=== PATIENT | female | born 1960 | race Caucasian/White ===

== ENCOUNTER → 2016-08-04 | Outpatient (REF) | payer BC ==
[~2016-08-04] MED LIST: ASTELIN; FLON1SPR
== END ==
LOC: M SFHCWAGY 08:43
PROVIDERS: ATTEND Nurse Practitioner Family
DX: Z12.4 Encounter for screening for malignant neoplasm of cervix (principal); N95.2 Postmenopausal atrophic vaginitis

== ENCOUNTER → 2016-10-13 | Outpatient (CLI) | payer BC ==
[2016-10-13 13:43] LABS: BASO % 0.5 % (0.0-1.0); EOS # 0.1 K/mm3 (0.0-0.50); EOS % 1.7 % (0.0-3.0); LARGE UNSTAINED CELL # 0.1 K/mm3 (0.0-0.4); LARGE UNSTAINED CELL % 1.7 % (0.0-4.0); LYMPH # 1.8 K/mm3 (1.5-4.5); LYMPH % 25.4 % (24.0-44.0); MEAN CORPUSCULAR HEMOGLOBIN 32.3 pg (27.0-33.0); MEAN CORPUSCULAR HGB CONC 33.2 g/dl (32.0-36.5); MEAN CORPUSCULAR VOLUME 97.1 fl (80.0-96.0); MONO # 0.3 K/mm3 (0.0-0.8); MONO % 4.7 % (0.0-5.0); NEUTROPHILS # 4.4 K/mm3 (1.8-7.7); PLATELET COUNT, AUTOMATED 221 k/mm3 (150-450); RED CELL DISTRIBUTION WIDTH 12.8 % (11.5-14.5); WHITE BLOOD COUNT 6.7 K/mm3 (4.0-10.0)
[2016-10-13 14:27] LABS: IMMUNOGLOBULIN G 549 MG/DL (681-1648); IMMUNOGLOBULIN M 39.2 MG/DL (40-230)
[2016-10-13 14:49] LABS: IMMUNOGLOBULIN E 19.6 IU/ML (<100)
== END ==
LOC: M SMT 11:48
PROVIDERS: ATTEND Allergy & Immunology Allergy
DX: J30.9 Allergic rhinitis, unspecified (principal)

== ENCOUNTER → 2016-11-26 | Outpatient (REF) | payer BC ==
[~2016-11-26] MED LIST changes: +AMLO5TAB2 PO; +ESTR62CR PV; +NYST50SS SS; +RANI150T PO
[2016-11-26 12:33] LABS: BLOOD UREA NITROGEN 16 MG/DL (7-18); CREATININE FOR GFR 0.71 MG/DL (0.55-1.02); GLOMERULAR FILTRATION RATE > 60.0 (>51)
== END ==
LOC: M LABDRAW1 09:23
PROVIDERS: ATTEND Psychiatry & Neurology Neurology
DX: I10 Essential (primary) hypertension (principal)

== ENCOUNTER → 2016-12-01 | Outpatient (REF) | payer BC ==
[2016-12-01 19:08] LABS: FREE T4 1.21 NG/DL (0.76-1.46)
== END ==
LOC: M LABDRAW1 15:05
PROVIDERS: ATTEND Emergency Medicine
DX: L65.9 Nonscarring hair loss, unspecified (principal)

== ENCOUNTER → 2016-12-01 | Outpatient (REF) | payer BC ==
[2016-12-08 00:11] LABS: STREP PNEUMO TYPE 12F 0.7 ug/mL (>1.3); STREP PNEUMO TYPE 18C 4.7 ug/mL (>1.3); STREP PNEUMO TYPE 19A >23.2 ug/mL (>1.3); STREP PNEUMO TYPE 19F 15.5 ug/mL (>1.3); STREP PNEUMO TYPE 23F >36.0 ug/mL (>1.3); STREP PNEUMO TYPE 6B 3.2 ug/mL (>1.3); STREP PNEUMO TYPE 7F 0.7 ug/mL (>1.3); STREP PNEUMO TYPE 9N 1.9 ug/mL (>1.3); STREP PNEUMO TYPE 9V 1.2 ug/mL (>1.3)
== END ==
LOC: M LABDRAW1 15:07
PROVIDERS: ATTEND Allergy & Immunology Allergy
DX: J32.9 Chronic sinusitis, unspecified (principal)

== ENCOUNTER → 2016-12-15 | Outpatient (REF) | payer BC | LOC: M LAB REF 12:55 | PROVIDERS: ATTEND Physician Assistant | DX: R35.0 Frequency of micturition (principal) ==

== ENCOUNTER → 2016-12-18 | Outpatient (CLI) | payer BC ==
[~2016-12-18] MED LIST changes: +E-Z-GAS II EFFERVESCENT PACKET (SODIUM BICARB./CITRIC ACID/SIMETHICONE) As Ordered ONE; +E-Z-HD 98% w/w 340GM SUSP BTL As Ordered ONE; +E-Z-PAQUE 96% w/w SUSP 176GM BTL As Ordered ONE
--- NOTE | 2016-12-18 15:41 | REP ---
Esophagram The procedure was performed under the direct supervision of Dr. Robles. The images were reviewed with Dr. Robles. A single view PA chest x-ray is submitted as a channeler film. The superior mediastinal structures are midline. The heart size is within normal limits. The lungs are clear. There is no change compared to a previous chest x-ray performed on 09/09/2016. Liquid barium and gas producing granules were given in the erect position as well as liquid barium in the prone oblique positions in order to perform a double contrast esophagram examination. The oral and pharyngeal stages of deglutition are unremarkable. Esophageal transport is prompt and efficient and there is no esophagitis, stricture, mucosal ring or hiatal hernia. The GE junction is patulous. Gastroesophageal reflux is not demonstrated on this examination. Impression: The GE junction is patulous otherwise unremarkable double contrast esophagram examination. 45 seconds of fluoro time was utilized for this procedure. Reviewed by DAVID Wilburn 12/18/2016 02:02 PSigned by Chago Robles MD 12/18/2016 03:32 P
== END ==
LOC: M RAD 08:56
PROVIDERS: ATTEND Physician Assistant Medical
DX: R13.10 Dysphagia, unspecified (principal); K21.9 Gastro-esophageal reflux disease without esophagitis; R10.13 Epigastric pain

== ENCOUNTER → 2016-12-23 | Outpatient (REF) | payer BC ==
[~2016-12-23] MED LIST changes: -E-Z-GAS II EFFERVESCENT PACKET (SODIUM BICARB./CITRIC ACID/SIMETHICONE) As Ordered ONE; -E-Z-HD 98% w/w 340GM SUSP BTL As Ordered ONE; -E-Z-PAQUE 96% w/w SUSP 176GM BTL As Ordered ONE
== END ==
LOC: M LAB REF 13:00
PROVIDERS: ATTEND Physician Assistant
DX: R30.0 Dysuria (principal)

== ENCOUNTER 2016-12-30 02:50 | Emergency (ER) | payer BC ==
[~2016-12-30] VITALS: Ht 170.2 cm; Wt 56.4 kg
[~2016-12-30 02:50] MED LIST changes: -ESTR62CR PV; -NYST50SS SS
[2016-12-30 02:55] VITALS: BP 145/82
[2016-12-30] MEDS ORDERED: NYST50SS SS (03:09)
[2016-12-30] MEDS ORDERED: ESTR62CR PV (05:25)
[2016-12-30] MEDS ORDERED: FLUCONAZOLE 50MG TABLET PO ONE (05:30)
[2016-12-30] MEDS ORDERED: FLUCONAZOLE 100 MG TAB PO ONE (05:30)
== END 2016-12-30 05:36 | disposition home or self-care (01) ==
LOC: M ED 02:50
DX: B37.3 Candidiasis of vulva and vagina (principal); N95.2 Postmenopausal atrophic vaginitis; R51 Headache; G89.29 Other chronic pain

== ENCOUNTER 2016-12-31 13:02 | Outpatient (CLI) | payer BC ==
[~2016-12-31] VITALS: Ht 170.2 cm; Wt 57.6 kg
[~2016-12-31 13:02] MED LIST changes: +ESTR62CR PV; +NYST50SS SS
[2016-12-31] MEDS ORDERED: NS 1,000 ML IV ONE (13:30)
[2016-12-31] MEDS ORDERED: PROPOFOL 200 MG/20 ML VIAL As Ordered ONE ×2 (16:03→16:30)
[2016-12-31] MEDS ORDERED: LIDOCAINE 2% INJ 100 MG/5 ML SDV (FOR ANES.) As Ordered ONE ×2 (16:03→16:30)
[2016-12-31] MEDS ORDERED: fentaNYL 100 MCG/2 ML INJECTION (J3010) As Ordered ONE (16:18)
--- NOTE | 2016-12-31 16:47 | ROOR ---
Patient Name: Zari Han Procedure Date: 12/31/2016 4:25 PM Date of : 1960 Age: 56 Room: [facility] Gender: Female Note Status: Finalized Procedure: Upper GI endoscopy Indications: Oropharyngeal phase dysphagia, Heartburn, Unexplained chest pain Providers: Maxwell SALAS MD Referring MD: PHILIP WAITE MD Requesting Provider: Medicines: Monitored Anesthesia Care Complications: No immediate complications. Procedure: Pre-Anesthesia Assessment: - The heart rate, respiratory rate, oxygen saturations, blood pressure, adequacy of pulmonary ventilation, and response to care were monitored throughout the procedure. The Endoscope was introduced through the mouth, and advanced to the second part of duodenum. The upper GI endoscopy was accomplished without difficulty. The patient tolerated the procedure well. Findings: Minimal inflammation characterized by erythema was found in the gastric antrum. Biopsies were taken with a cold forceps for Helicobacter pylori testing. The examined esophagus was normal. This was biopsied with a cold forceps for histology. The examined duodenum was normal. Impression: - Minimal gastritis. Biopsied. - Normal esophagus. Biopsied at EG junction and mid esophagus. - Normal examined duodenum. Recommendation: - Use Nexium (esomeprazole) 40 mg PO daily. - Telephone endoscopist for pathology results in 2 weeks. Maxwell Salas MD Maxwell SALAS MD 12/31/2016 4:46:44 PM This report has been signed electronically. Number of Addenda: 0 Note Initiated On: 12/31/2016 4:25 PM Estimated Blood Loss: Estimated blood loss: none.
[2016-12-31 17:05] VITALS: BP 172/88
== END 2016-12-31 17:18 | disposition home or self-care (01) ==
LOC: M OPP 13:02
PROVIDERS: ATTEND Internal Medicine Gastroenterology
DX: K29.70 Gastritis, unspecified, without bleeding (principal); K20.9 Esophagitis, unspecified; I10 Essential (primary) hypertension; J30.2 Other seasonal allergic rhinitis; Z79.899 Other long term (current) drug therapy; Z88.0 Allergy status to penicillin; Z91.030 Bee allergy status; Z88.1 Allergy status to other antibiotic agents; Z88.2 Allergy status to sulfonamides
CPT/HCPCS: 43239; 88305; J3010

== ENCOUNTER → 2017-04-27 | Outpatient (CLI) | payer BC | LOC: M LRY 08:07 | PROVIDERS: ATTEND Physician Assistant Medical | DX: K21.9 Gastro-esophageal reflux disease without esophagitis (principal) ==

== ENCOUNTER → 2017-06-18 | Outpatient (CLI) | payer BC ==
[2017-06-18 08:43] LABS: BASO % 0.9 % (0.0-1.0); EOS # 0.1 10^3/uL (0.0-0.50); EOS % 2.2 % (0.0-3.0); HEMATOCRIT 43.7 % (36.0-47.0); HEMOGLOBIN 14.3 g/dl (12.0-16.0); IMMATURE GRANULOCYTE % 0.4 % (0-0); LYMPH # 1.5 10^3/uL (1.5-4.5); MEAN CORPUSCULAR HEMOGLOBIN 31.1 pg (27.0-33.0); MEAN CORPUSCULAR HGB CONC 32.7 g/dl (32.0-36.5); MONO # 0.3 10^3/uL (0.0-0.8); MONO % 6.8 % (0.0-5.0); NEUTROPHILS # 2.5 10^3/uL (1.8-7.7); NEUTROPHILS % 55.7 % (36.0-66.0); PLATELET COUNT, AUTOMATED 160 10^3/uL (150-450); RED CELL DISTRIBUTION WIDTH 12.4 % (11.5-14.5); WHITE BLOOD COUNT 4.5 10^3/uL (4.0-10.0)
[2017-06-18 08:58] LABS: ANION GAP 2 MEQ/L (8-16); BLOOD UREA NITROGEN 17 MG/DL (7-18); CARBON DIOXIDE LEVEL 32 MEQ/L (21-32); CHLORIDE LEVEL 109 MEQ/L (98-107); CHOLESTEROL LEVEL 180 MG/DL (<200); CHOLESTEROL RISK RATIO 3.333 (<5); CREATININE FOR GFR 0.72 MG/DL (0.55-1.02); GLOMERULAR FILTRATION RATE > 60.0 (>51); GLUCOSE, FASTING 87 MG/DL (70-100); HDL CHOLESTEROL 54 MG/DL (>40); LDL CHOLESTEROL 115.2 MG/DL (<100); NON-HDL-C 126 MG/DL; POTASSIUM SERUM 4.8 MEQ/L (3.5-5.1); SODIUM LEVEL 143 MEQ/L (136-145); TRIGLYCERIDES LEVEL 54 MG/DL (<150)
== END ==
LOC: M LAB 07:55
DX: I10 Essential (primary) hypertension (principal)
CPT/HCPCS: 80061

== ENCOUNTER 2017-08-26 11:41 | Day surgery (SDC) | payer BC ==
[2017-08-26] MEDS ORDERED: fentaNYL 100 MCG/2 ML INJECTION (J3010) As Ordered (12:27)
[2017-08-26] MEDS ORDERED: PROPOFOL 200 MG/20 ML VIAL As Ordered ×2 (12:29→12:31)
[2017-08-26] MEDS ORDERED: LIDOCAINE 2% INJ 100 MG/5 ML SDV (FOR ANES.) As Ordered (12:29)
[2017-08-26] MEDS ORDERED: NS 1,000 ML IV (12:30)
== END 2017-08-26 14:00 | disposition home or self-care (01) ==
LOC: M OPP 11:41
DX: R10.13 Epigastric pain (principal); K21.9 Gastro-esophageal reflux disease without esophagitis; I10 Essential (primary) hypertension; F41.9 Anxiety disorder, unspecified; F32.9 Major depressive disorder, single episode, unspecified; Z78.0 Asymptomatic menopausal state; Q07.9 Congenital malformation of nervous system, unspecified; Z91.030 Bee allergy status; Z88.0 Allergy status to penicillin; Z88.1 Allergy status to other antibiotic agents; Z91.040 Latex allergy status; Z88.2 Allergy status to sulfonamides; Z88.8 Allergy status to other drugs, medicaments and biological substances; Z79.899 Other long term (current) drug therapy; Z80.3 Family history of malignant neoplasm of breast; Z80.42 Family history of malignant neoplasm of prostate; Z80.0 Family history of malignant neoplasm of digestive organs
CPT/HCPCS: 91035

== ENCOUNTER → 2017-09-02 | Outpatient (CLI) | payer BC ==
[2017-09-02 17:55] LABS: BASO % 0.5 % (0.0-1.0); EOS # 0.1 10^3/uL (0.0-0.50); EOS % 0.8 % (0.0-3.0); HEMATOCRIT 46.3 % (36.0-47.0); HEMOGLOBIN 15.1 g/dl (12.0-15.5); IMMATURE GRANULOCYTE % 0.4 % (0-3.0); LYMPH # 1.4 10^3/uL (1.5-4.5); LYMPH % 19.6 % (24.0-44.0); MEAN CORPUSCULAR HEMOGLOBIN 31.3 pg (27.0-33.0); MEAN CORPUSCULAR HGB CONC 32.6 g/dl (32.0-36.5); MEAN CORPUSCULAR VOLUME 95.9 fl (80.0-96.0); MONO # 0.5 10^3/uL (0.0-0.8); MONO % 6.2 % (0.0-5.0); NEUTROPHILS # 5.3 10^3/uL (1.8-7.7); NEUTROPHILS % 72.5 % (36.0-66.0); PLATELET COUNT, AUTOMATED 189 10^3/uL (150-450); RED BLOOD COUNT 4.83 10^6/uL (4.00-5.40); RED CELL DISTRIBUTION WIDTH 12.8 % (11.5-14.5); WHITE BLOOD COUNT 7.3 10^3/uL (4.0-10.0)
[2017-09-02 18:11] LABS: ALBUMIN 4.1 GM/DL (3.2-5.2); ALBUMIN/GLOBULIN RATIO 1.46 (1.00-1.93); ALKALINE PHOSPHATASE 84 U/L (45-117); ALT/SGPT 31 U/L (12-78); ANION GAP 6 MEQ/L (8-16); AST/SGOT 14 U/L (7-37); BILIRUBIN,TOTAL 0.4 MG/DL (0.2-1.0); BLOOD UREA NITROGEN 22 MG/DL (7-18); CARBON DIOXIDE LEVEL 30 MEQ/L (21-32); CHLORIDE LEVEL 109 MEQ/L (98-107); CREATININE FOR GFR 0.72 MG/DL (0.55-1.30); FREE T4 1.07 NG/DL (0.76-1.46); GLOMERULAR FILTRATION RATE > 60.0 (>51); GLUCOSE, FASTING 82 MG/DL (70-100); POTASSIUM SERUM 4.1 MEQ/L (3.5-5.1); SODIUM LEVEL 145 MEQ/L (136-145); THYROID STIMULATING HORMONE 0.983 uIU/ML (0.358-3.740); TOTAL PROTEIN 6.9 GM/DL (6.4-8.2)
== END ==
LOC: M LRY 10:15
DX: R63.4 Abnormal weight loss (principal)
CPT/HCPCS: 84443

== ENCOUNTER → 2017-11-16 | Outpatient (CLI) | payer BC ==
[2017-11-16 07:52] LABS: BASO % 0.5 % (0.0-1.0); EOS # 0.1 10^3/uL (0.0-0.50); EOS % 1.6 % (0.0-3.0); HEMATOCRIT 43.7 % (36.0-47.0); HEMOGLOBIN 15.2 g/dl (12.0-15.5); IMMATURE GRANULOCYTE % 0.2 % (0-3.0); LYMPH # 1.7 10^3/uL (1.5-4.5); LYMPH % 30.2 % (24.0-44.0); MEAN CORPUSCULAR HEMOGLOBIN 32.1 pg (27.0-33.0); MEAN CORPUSCULAR HGB CONC 34.8 g/dl (32.0-36.5); MEAN CORPUSCULAR VOLUME 92.4 fl (80.0-96.0); MONO # 0.4 10^3/uL (0.0-0.8); NEUTROPHILS # 3.3 10^3/uL (1.8-7.7); NEUTROPHILS % 59.5 % (36.0-66.0); PLATELET COUNT, AUTOMATED 201 10^3/uL (150-450); RED BLOOD COUNT 4.73 10^6/uL (4.00-5.40); RED CELL DISTRIBUTION WIDTH 12.1 % (11.5-14.5); WHITE BLOOD COUNT 5.5 10^3/uL (4.0-10.0)
[2017-11-16 07:54] LABS: APPEARANCE, URINE CLEAR (CLEAR); BACTERIA, URINE AUTO NEGATIVE (NEGATIVE); BILIRUBIN, URINE AUTO NEGATIVE (NEGATIVE); BLOOD, URINE BLOOD NEGATIVE (NEGATIVE); COLOR, URINE STRAW (YELLOW); GLUCOSE, URINE (UA) AUTO NEGATIVE (NEGATIVE); KETONE, URINE AUTO NEGATIVE (NEGATIVE); LEUKOCYTE ESTERASE, URINE AUTO TRACE (NEGATIVE); NITRITE, URINE AUTO NEGATIVE (NEGATIVE); PROTEIN, URINE AUTO NEGATIVE (NEGATIVE); RBC, URINE AUTO 0 /HPF (0-3); SPECIFIC GRAVITY URINE AUTO 1.006 (1.002-1.035); SQUAMOUS EPITHELIAL CELL UR AU 0 /HPF (0-6); UROBILINOGEN, URINE AUTO 0.2 mg/dL (0.0-2.0); WBC, URINE AUTO 1 /HPF (0-3)
[2017-11-16 08:03] LABS: INR 1.03; PROTHROMBIN TIME 13.6 SECONDS (12.4-14.5)
[2017-11-16 08:04] LABS: PARTIAL THROMBOPLASTIN TIME 27.2 SECONDS (26.8-37.9)
[2017-11-16 08:40] LABS: ALBUMIN 4.3 GM/DL (3.2-5.2); ALBUMIN/GLOBULIN RATIO 1.48 (1.00-1.93); ALKALINE PHOSPHATASE 97 U/L (45-117); ALT/SGPT 32 U/L (12-78); ANION GAP 9 MEQ/L (8-16); AST/SGOT 17 U/L (7-37); BILIRUBIN,TOTAL 0.4 MG/DL (0.2-1.0); BLOOD UREA NITROGEN 13 MG/DL (7-18); CALCIUM LEVEL 9.1 MG/DL (8.5-10.1); CARBON DIOXIDE LEVEL 30 MEQ/L (21-32); CHLORIDE LEVEL 99 MEQ/L (98-107); CREATININE FOR GFR 0.65 MG/DL (0.55-1.30); GLOMERULAR FILTRATION RATE > 60.0 (>51); GLUCOSE, FASTING 64 MG/DL (70-100); HCG, SERUM QUANTITATIVE 2 MIU/ML; LDH LACTATE DEHYDROGENASE 213 U/L (84-246); POTASSIUM SERUM 4.3 MEQ/L (3.5-5.1); SODIUM LEVEL 138 MEQ/L (136-145); TOTAL PROTEIN 7.2 GM/DL (6.4-8.2)
== END ==
LOC: M LAB 06:47
DX: G50.0 Trigeminal neuralgia (principal); R94.31 Abnormal electrocardiogram [ECG] [EKG]
CPT/HCPCS: 71046

== ENCOUNTER → 2018-03-08 | Outpatient (CLI) | payer BC | LOC: M WHC 14:03 | DX: N95.0 Postmenopausal bleeding (principal) | CPT/HCPCS: 76830 ==

== ENCOUNTER → 2018-05-14 | Outpatient (CLI) | payer BC ==
[~2018-05-14] MED LIST changes: -AMLO5TAB2 PO; +AMLO5TAB6 PO; +CLAR10CA3 PO; +DIGECAP7 PO; +FISH1CAP PO; +PROBCAP4 PO; +RANI1TAB6 PO
[2018-05-14 12:12] LABS: BASO % 0.7 % (0.0-1.0); EOS # 0.2 10^3/uL (0.0-0.50); EOS % 3.5 % (0.0-3.0); HEMATOCRIT 44.9 % (36.0-47.0); HEMOGLOBIN 15.3 g/dl (12.0-15.5); LYMPH # 1.3 10^3/uL (1.5-4.5); LYMPH % 30.8 % (24.0-44.0); MEAN CORPUSCULAR HEMOGLOBIN 32.6 pg (27.0-33.0); MEAN CORPUSCULAR HGB CONC 34.1 g/dl (32.0-36.5); MEAN CORPUSCULAR VOLUME 95.7 fl (80.0-96.0); MONO # 0.3 10^3/uL (0.0-0.8); MONO % 7.4 % (0.0-5.0); NEUTROPHILS # 2.5 10^3/uL (1.8-7.7); NEUTROPHILS % 57.4 % (36.0-66.0); PLATELET COUNT, AUTOMATED 190 10^3/uL (150-450); RED BLOOD COUNT 4.69 10^6/uL (4.00-5.40); WHITE BLOOD COUNT 4.3 10^3/uL (4.0-10.0)
[2018-05-14 12:18] LABS: ALBUMIN 3.9 GM/DL (3.2-5.2); ALT/SGPT 24 U/L (12-78); BILIRUBIN,TOTAL 0.3 MG/DL (0.2-1.0); BLOOD UREA NITROGEN 11 MG/DL (7-18); CALCIUM LEVEL 8.8 MG/DL (8.5-10.1); CARBON DIOXIDE LEVEL 30 MEQ/L (21-32); CHLORIDE LEVEL 99 MEQ/L (98-107); CREATININE FOR GFR 0.63 MG/DL (0.55-1.30); GLOMERULAR FILTRATION RATE > 60.0 (>51); GLUCOSE, FASTING 86 MG/DL (70-100); POTASSIUM SERUM 4.7 MEQ/L (3.5-5.1); SODIUM LEVEL 136 MEQ/L (136-145); TOTAL PROTEIN 6.4 GM/DL (6.4-8.2)
[2018-05-14 12:37] LABS: CARBAMAZEPINE (TEGRETOL) LEVEL 6.4 UG/ML (4.0-10.0)
== END ==
LOC: M LRY 09:24
DX: G50.0 Trigeminal neuralgia (principal)

== ENCOUNTER → 2018-07-21 | Outpatient (CLI) | payer BC ==
[2018-07-21 07:10] LABS: CHOLESTEROL RISK RATIO 3.222 (<5)
[2018-07-21 09:01] LABS: TOTAL 25(OH) VITAMIN D 32.9 NG/ML (30.0-100.0)
== END ==
LOC: M LAB 06:22
PROVIDERS: ATTEND Physician Assistant
DX: Z00.00 Encounter for general adult medical examination without abnormal findings (principal); E55.9 Vitamin D deficiency, unspecified

== ENCOUNTER → 2019-01-13 | Outpatient (REF) | payer BC ==
[2019-01-13 13:31] LABS: APPEARANCE, URINE CLEAR (CLEAR); BACTERIA, URINE AUTO NEGATIVE (NEGATIVE); BILIRUBIN, URINE AUTO NEGATIVE (NEGATIVE); BLOOD, URINE BLOOD NEGATIVE (NEGATIVE); COLOR, URINE YELLOW (YELLOW); GLUCOSE, URINE (UA) AUTO NEGATIVE (NEGATIVE); KETONE, URINE AUTO NEGATIVE (NEGATIVE); LEUKOCYTE ESTERASE, URINE AUTO NEGATIVE (NEGATIVE); MUCUS, URINE SMALL (NEGATIVE); NITRITE, URINE AUTO NEGATIVE (NEGATIVE); PROTEIN, URINE AUTO NEGATIVE (NEGATIVE); RBC, URINE AUTO 3 /HPF (0-3); SPECIFIC GRAVITY URINE AUTO 1.011 (1.002-1.035); SQUAMOUS EPITHELIAL CELL UR AU 1 /HPF (0-6); UROBILINOGEN, URINE AUTO 0.2 mg/dL (0.0-2.0); WBC, URINE AUTO 1 /HPF (0-3)
== END ==
LOC: M LAB REF 12:45
PROVIDERS: ATTEND Physician Assistant Medical
DX: R30.0 Dysuria (principal); R31.9 Hematuria, unspecified

== ENCOUNTER → 2019-02-06 | Outpatient (CLI) | payer BC ==
[~2019-02-06] MED LIST changes: +ALIVTAB PO; +ALPR0.5T3 PO; +CARB1CAP3 PO; +CARB200T98 PO; +FAMO1TAB11 PO; +LISI10TA4 PO; +MAGN400C2 PO; +NYST50SS PO; +RANI-397 PO; -RANI1TAB6 PO; +VITA100054 PO; +VITA500T41 PO
[2019-02-06 17:17] LABS: BASO % 0.5 % (0.0-1.0); EOS % 0.7 % (0.0-3.0); HEMATOCRIT 42.6 % (36.0-47.0); HEMOGLOBIN 14.5 g/dl (12.0-15.5); LYMPH # 1.1 10^3/uL (1.5-5.0); LYMPH % 19.5 % (24.0-44.0); MEAN CORPUSCULAR HEMOGLOBIN 32.7 pg (27.0-33.0); MEAN CORPUSCULAR VOLUME 96.2 fl (80.0-96.0); MONO # 0.4 10^3/uL (0.0-0.8); MONO % 7.2 % (0.0-5.0); NEUTROPHILS # 4.2 10^3/uL (1.5-8.5); NEUTROPHILS % 71.9 % (36.0-66.0); PLATELET COUNT, AUTOMATED 201 10^3/uL (150-450); RED BLOOD COUNT 4.43 10^6/uL (4.00-5.40); WHITE BLOOD COUNT 5.9 10^3/uL (4.0-10.0)
[2019-02-06 17:22] LABS: ALBUMIN 4.4 GM/DL (3.2-5.2); ALT/SGPT 23 U/L (12-78); AMYLASE 57 U/L (25-115); BILIRUBIN,TOTAL 0.5 MG/DL (0.2-1.0); BLOOD UREA NITROGEN 8 MG/DL (7-18); CALCIUM LEVEL 9.3 MG/DL (8.5-10.1); CARBON DIOXIDE LEVEL 28 MEQ/L (21-32); CHLORIDE LEVEL 101 MEQ/L (98-107); CREATININE FOR GFR 0.64 MG/DL (0.55-1.30); GLOMERULAR FILTRATION RATE > 60.0 (>51); GLUCOSE, FASTING 132 MG/DL (70-100); LIPASE 225 U/L (73-393); MAGNESIUM LEVEL 2.4 MG/DL (1.8-2.4); POTASSIUM SERUM 4.1 MEQ/L (3.5-5.1); SODIUM LEVEL 136 MEQ/L (136-145); TOTAL PROTEIN 6.9 GM/DL (6.4-8.2)
== END ==
LOC: M LRY 11:17
PROVIDERS: ATTEND Physician Assistant Medical
DX: R10.13 Epigastric pain (principal)

== ENCOUNTER → 2019-03-23 | Outpatient (REF) | payer BC ==
[~2019-03-23] MED LIST changes: -ALIVTAB PO; -ALPR0.5T3 PO; -CARB1CAP3 PO; -CARB200T98 PO; -FAMO1TAB11 PO; -LISI10TA4 PO; -MAGN400C2 PO; -NYST50SS PO; +RANI-356 PO; -RANI-397 PO; -VITA100054 PO; -VITA500T41 PO
[2019-03-24 13:33] LABS: APPEARANCE, URINE CLEAR (CLEAR); BACTERIA, URINE AUTO NEGATIVE (NEGATIVE); BILIRUBIN, URINE AUTO NEGATIVE (NEGATIVE); BLOOD, URINE BLOOD NEGATIVE (NEGATIVE); COLOR, URINE YELLOW (YELLOW); GLUCOSE, URINE (UA) AUTO NEGATIVE (NEGATIVE); KETONE, URINE AUTO 1+ mg/dL (NEGATIVE); LEUKOCYTE ESTERASE, URINE AUTO NEGATIVE (NEGATIVE); MUCUS, URINE SMALL (NEGATIVE); NITRITE, URINE AUTO NEGATIVE (NEGATIVE); PROTEIN, URINE AUTO NEGATIVE (NEGATIVE); RBC, URINE AUTO 2 /HPF (0-3); SPECIFIC GRAVITY URINE AUTO 1.011 (1.002-1.035); SQUAMOUS EPITHELIAL CELL UR AU 1 /HPF (0-6); UROBILINOGEN, URINE AUTO 0.2 mg/dL (0.0-2.0); WBC, URINE AUTO 5 /HPF (0-3)
== END ==
LOC: M LAB REF 13:03
PROVIDERS: ATTEND Physician Assistant
DX: R35.0 Frequency of micturition (principal)

== ENCOUNTER → 2019-03-24 | Outpatient (CLI) | payer BC ==
[2019-03-24 07:05] LABS: BASO % 0.8 % (0.0-1.0); EOS # 0.1 10^3/uL (0.0-0.5); EOS % 1.6 % (0.0-3.0); HEMATOCRIT 44.2 % (36.0-47.0); HEMOGLOBIN 15.1 g/dl (12.0-15.5); LYMPH # 1.1 10^3/uL (1.5-5.0); LYMPH % 23.3 % (24.0-44.0); MEAN CORPUSCULAR HEMOGLOBIN 33.4 pg (27.0-33.0); MEAN CORPUSCULAR HGB CONC 34.2 g/dl (32.0-36.5); MEAN CORPUSCULAR VOLUME 97.8 fl (80.0-96.0); MONO # 0.4 10^3/uL (0.0-0.8); MONO % 8.4 % (0.0-5.0); NEUTROPHILS # 3.2 10^3/uL (1.5-8.5); NEUTROPHILS % 65.5 % (36.0-66.0); PLATELET COUNT, AUTOMATED 219 10^3/uL (150-450); RED BLOOD COUNT 4.52 10^6/uL (4.00-5.40); WHITE BLOOD COUNT 4.9 10^3/uL (4.0-10.0)
[2019-03-24 07:42] LABS: ALBUMIN 4.3 GM/DL (3.2-5.2); ALT/SGPT 29 U/L (12-78); BILIRUBIN,TOTAL 0.4 MG/DL (0.2-1.0); BLOOD UREA NITROGEN 9 MG/DL (7-18); CALCIUM LEVEL 9.1 MG/DL (8.5-10.1); CARBON DIOXIDE LEVEL 28 MEQ/L (21-32); CHLORIDE LEVEL 101 MEQ/L (98-107); CREATININE FOR GFR 0.63 MG/DL (0.55-1.30); GLOMERULAR FILTRATION RATE > 60.0 (>51); GLUCOSE, FASTING 82 MG/DL (70-100); MAGNESIUM LEVEL 2.2 MG/DL (1.8-2.4); POTASSIUM SERUM 4.9 MEQ/L (3.5-5.1); SODIUM LEVEL 136 MEQ/L (136-145); TOTAL PROTEIN 6.9 GM/DL (6.4-8.2)
[2019-03-26 00:06] LABS: H PYLORI SERUM QUANT IGM <9.0 units (0.0-8.9); H PYLORI SERUM QUANT IgG ABY 0.19 (0.00-0.79); Lyme Disease IgG/IgM Antibodie <0.91 ISR (0.00-0.90); Lyme Disease IgM Ab Quantitati <0.80 index (0.00-0.79)
== END ==
LOC: M LAB 06:07
PROVIDERS: ATTEND Physician Assistant
DX: R53.83 Other fatigue (principal); R10.13 Epigastric pain; R19.7 Diarrhea, unspecified

== ENCOUNTER → 2019-03-29 | Outpatient (REF) | payer BC ==
[2019-03-29 15:49] LABS: FOLATE 7.6 NG/ML (>5.4)
== END ==
LOC: M LABDRAW1 10:42
PROVIDERS: ATTEND Family Medicine
DX: D64.9 Anemia, unspecified (principal)

== ENCOUNTER → 2019-04-27 | Outpatient (CLI) | payer BC ==
[~2019-04-27] MED LIST changes: -RANI-356 PO; +RANI-397 PO
[2019-04-27 14:09] LABS: ALBUMIN 4.4 GM/DL (3.2-5.2); ALT/SGPT 30 U/L (12-78); AMYLASE 65 U/L (25-115); BILIRUBIN,TOTAL 0.3 MG/DL (0.2-1.0); BLOOD UREA NITROGEN 10 MG/DL (7-18); CALCIUM LEVEL 8.9 MG/DL (8.8-10.2); CARBON DIOXIDE LEVEL 31 MEQ/L (21-32); CHLORIDE LEVEL 98 MEQ/L (98-107); CREATININE FOR GFR 0.68 MG/DL (0.55-1.30); GLOMERULAR FILTRATION RATE > 60.0 (>45); GLUCOSE, FASTING 85 MG/DL (70-100); LIPASE 422 U/L (73-393); POTASSIUM SERUM 4.7 MEQ/L (3.5-5.1); SODIUM LEVEL 133 MEQ/L (136-145); TOTAL PROTEIN 6.7 GM/DL (6.4-8.2)
== END ==
LOC: M PLALAB 10:31
PROVIDERS: ATTEND Nurse Practitioner
DX: R12 Heartburn (principal); R13.10 Dysphagia, unspecified; R14.3 Flatulence; K59.00 Constipation, unspecified

== ENCOUNTER → 2019-05-02 | Outpatient (REF) | payer BC | LOC: M LAB REF 10:30 | PROVIDERS: ATTEND Physician Assistant | DX: R12 Heartburn (principal); R13.10 Dysphagia, unspecified; R14.3 Flatulence; K59.00 Constipation, unspecified ==

== ENCOUNTER 2019-05-07 20:31 | Emergency (ER) | payer BC ==
[~2019-05-07] VITALS: Ht 170.2 cm; Wt 53.6 kg
--- NOTE | 2019-05-07 21:36 | REPVR ---
PROCEDURE INFORMATION: Exam: CT Head Without Contrast Exam date and time: 05/07/2019 9:10 PM Age: 59 years old Clinical history: Other: CVA TECHNIQUE: Imaging protocol: Computed tomography of the head without contrast. Radiation optimization: All CT scans at this facility use at least one of these dose optimization techniques: automated exposure control; mA and/or kV adjustment per patient size (includes targeted exams where dose is matched to clinical indication); or iterative reconstruction. Other technique: STROKE PROTOCOL was implemented. COMPARISON: CT Head without contrast 08/18/2012 8:08 AM FINDINGS: Brain: No intracranial mass, mass effect or midline shift. No acute intracranial hemorrhage. No CT evidence of acute cortical infarct. Ventricles: Ventricles, cisterns, and sulci are normal in size for age. Bones/joints: Occipital calvarial decompression change for probable Chiari malformation. Changes in the midline and posterior to the left mastoids are stable. Decompression and plate fixation posterior to the right mastoids is new since the prior CT from 2012 No calvarial fracture or destructive process. Sinuses: Imaged paranasal sinuses are clear. Mastoid air cells: Mastoid air cells are normally aerated. Orbits: Imaged orbits are unremarkable. Soft tissues: No focal extracranial soft tissue swelling. IMPRESSION: 1. No acute or concerning focal intracranial abnormality. 2. Postsurgical changes of the occipital calvarium for posterior decompression ASSESSMENT: ASPECTS ([place] Stroke Program Early CT Score) is 10 Electronically signed by: Rome Monsalve On 05/07/2019 21:35:36 PM
[2019-05-07 22:30] VITALS: BP 186/83
== END 2019-05-07 22:43 | disposition home or self-care (01) ==
LOC: M ED 20:31
DX: R42 Dizziness and giddiness (principal); R20.2 Paresthesia of skin; K21.9 Gastro-esophageal reflux disease without esophagitis; Z79.899 Other long term (current) drug therapy; Z88.0 Allergy status to penicillin; Z88.1 Allergy status to other antibiotic agents; Z88.2 Allergy status to sulfonamides; Z88.8 Allergy status to other drugs, medicaments and biological substances; Z91.030 Bee allergy status; Z91.040 Latex allergy status

== ENCOUNTER → 2019-05-26 | Outpatient (CLI) | payer BC ==
[2019-05-26 14:14] LABS: ALBUMIN 4.1 GM/DL (3.2-5.2); ALT/SGPT 32 U/L (12-78); AMYLASE 74 U/L (25-115); BILIRUBIN,TOTAL 0.2 MG/DL (0.2-1.0); BLOOD UREA NITROGEN 10 MG/DL (7-18); CALCIUM LEVEL 8.8 MG/DL (8.8-10.2); CARBON DIOXIDE LEVEL 30 MEQ/L (21-32); CHLORIDE LEVEL 100 MEQ/L (98-107); CREATININE FOR GFR 0.59 MG/DL (0.55-1.30); GLOMERULAR FILTRATION RATE > 60.0 (>45); GLUCOSE, FASTING 93 MG/DL (70-100); LIPASE 522 U/L (73-393); POTASSIUM SERUM 4.2 MEQ/L (3.5-5.1); SODIUM LEVEL 136 MEQ/L (136-145); TOTAL PROTEIN 6.7 GM/DL (6.4-8.2)
[2019-05-26 14:19] LABS: HEMOGLOBIN A1c 5.3 %
== END ==
LOC: M PLALAB 10:24
PROVIDERS: ATTEND Physician Assistant
DX: I10 Essential (primary) hypertension (principal); R74.8 Abnormal levels of other serum enzymes

== ENCOUNTER 2019-06-11 07:16 | Observation (INO) | payer BC ==
[~2019-06-11] VITALS: Ht 170.2 cm; Wt 53.6 kg
--- NOTE | 2019-06-11 08:08 | REPVR ---
PROCEDURE INFORMATION: Exam: CT Head Without Contrast Exam date and time: 06/11/2019 7:56 AM Age: 59 years old Clinical indication: Other: Seizure like activity; Additional info: CVA - nursing interventions must not delay CT TECHNIQUE: Imaging protocol: Computed tomography of the head without contrast. Radiation optimization: All CT scans at this facility use at least one of these dose optimization techniques: automated exposure control; mA and/or kV adjustment per patient size (includes targeted exams where dose is matched to clinical indication); or iterative reconstruction. Other technique: STROKE PROTOCOL was implemented. COMPARISON: CT Head without contrast 05/07/2019 9:07 PM FINDINGS: Brain: Normal. No hemorrhage. Unremarkable white matter. No mass effect. Ventricles: Normal. No ventriculomegaly. Bones/joints: Suboccipital craniotomy. Sinuses: Visualized sinuses are unremarkable. No fluid levels. Mastoid air cells: Visualized mastoid air cells are well aerated. Soft tissues: Unremarkable. IMPRESSION: No CT evidence of acute infarct. ASSESSMENT: ASPECTS ([place] Stroke Program Early CT Score) is10. Electronically signed by: Theresa Mitchell On 06/11/2019 08:07:58 AM
--- NOTE | 2019-06-11 08:10 | REP ---
Portable chest x-ray: Single view. History: CVA. Comparison study: November 16, 2017. Findings: Monitoring electrodes are seen. The lungs are well inflated and clear. The pleural angles are sharp. Heart is not enlarged. Pulmonary vasculature is not increased. Impression: No active disease. Electronically Signed by Parish Granger MD 06/11/2019 08:01 A
[2019-06-11 08:21] LABS: BASO % 0.7 % (0.0-1.0); EOS # 0.1 10^3/uL (0.0-0.5); EOS % 0.9 % (0.0-3.0); HEMATOCRIT 43.6 % (36.0-47.0); HEMOGLOBIN 14.4 g/dl (12.0-15.5); LYMPH # 0.8 10^3/uL (1.5-5.0); LYMPH % 15.1 % (24.0-44.0); MEAN CORPUSCULAR HEMOGLOBIN 32.9 pg (27.0-33.0); MEAN CORPUSCULAR VOLUME 99.5 fl (80.0-96.0); MONO # 0.4 10^3/uL (0.0-0.8); MONO % 6.5 % (0.0-5.0); NEUTROPHILS # 4.3 10^3/uL (1.5-8.5); NEUTROPHILS % 76.6 % (36.0-66.0); PLATELET COUNT, AUTOMATED 219 10^3/uL (150-450); RED BLOOD COUNT 4.38 10^6/uL (4.00-5.40); WHITE BLOOD COUNT 5.6 10^3/uL (4.0-10.0)
[2019-06-11 08:32] LABS: INR 1.13; PROTHROMBIN TIME 14.2 SECONDS (11.8-14.0)
[2019-06-11 08:33] LABS: PARTIAL THROMBOPLASTIN TIME 26.6 SECONDS (25.0-38.4)
[2019-06-11 08:45] LABS: CARBAMAZEPINE (TEGRETOL) LEVEL 6.1 UG/ML (4.0-10.0); CK-MB VALUE MASS < 1.0 NG/ML (<3.6); CPK CREATINE PHOSPHOKINASE 34 U/L (26-192); MB/CK RELATIVE INDEX 2.94 (< OR =4); TROPONIN I < 0.02 NG/ML (< 0.10)
[2019-06-11] MEDS ORDERED: MAGN400C2 PO (08:51)
[2019-06-11] MEDS ORDERED: LISI10TA4 PO (08:51)
[2019-06-11] MEDS ORDERED: VITA100054 PO (08:51)
[2019-06-11] MEDS ORDERED: FAMO1TAB11 PO (08:51)
[2019-06-11] MEDS ORDERED: ALIVTAB PO (08:51)
[2019-06-11] MEDS ORDERED: ALPR0.5T3 PO (08:51)
[2019-06-11] MEDS ORDERED: CARB1CAP3 PO (08:51)
[2019-06-11] MEDS ORDERED: VITA500T41 PO (08:51)
[2019-06-11] MEDS ORDERED: CARB200T98 PO ×2 (08:51→08:56)
--- NOTE | 2019-06-11 09:06 | HPEPDOC ---
[facility] Medical History & Physical Date of Admission Jun 11, 2019 Date of Service: Jun 11, 2019 Other Provider Paz VINCENT History and Physical TIME OF SERVICE: 12:30 PM CHIEF COMPLAINT: Weakness HISTORY OF PRESENT ILLNESS: This is a 59-year-old female who presents with sudden onset left upper extremity and left lower extremity weakness associated with blurry vision, and difficulty swallowing at 5 AM this morning. She stopped taking her Tegretol and thinks that the symptoms may be due to missing a dose of her medication. Shortly after arrival in the ER, the symptoms resolved. She has a history of trigeminal neuralgia status post gamma knife and has some difficulty swallowing, slurred speech and facial droop at her baseline; but she reports the symptoms were slightly worse this morning REVIEW OF SYSTEMS: 12 point review of systems negative except as listed in HPI PAST MEDICAL/ SURGICAL HISTORY: Trigeminal neuralgia status post gamma knife procedure Chronic hypertension Status post 2 Status post uterine ablation SOCIAL HISTORY: She does not smoke FAMILY HISTORY: Breast cancer. Diabetes ALLERGIES: Please see below. HOME MEDICATIONS: Please see below. PHYSICAL EXAMINATION: VITAL SIGNS: Please see below. GEN: well-nourished / well developed/ NAD INTEGUMENT: not flushed/ not jaundice HEENT: NCAT / /mucus membranes moist and pink CVS: RRR/NMRG/ radial and dorsalis pedis pulses intact / no lower extremity edema LUNGS: able to speak full sentences without stopping to take a breath / lungs are clear to auscultation bilaterally on room air ABDOMEN: soft & not tender with palpation MSK/EXTREMITIES: range of motion intact in all 4 extremities NEURO: CN 2-12 are grossly intact / speech is not dysarthric / strength is 5/5 / sensation intact in all 4 extremities PSYCH: Flat affect/alert and oriented to person place and time/ able to understand and follow all commands LABORATORY DATA: See below. IMAGING: CT head " IMPRESSION: No CT evidence of acute infarct. ASSESSMENT: ASPECTS ([place] Stroke Program Early CT Score) is10. Chest x-ray " Impression: No active disease." MRI of the brain " Impression: Unremarkable MR angiography the brain." CTA of the head " IMPRESSION: Unremarkable CT angiography of the brain." CTA of the neck " IMPRESSION: Minimal carotid artery bifurcation plaquing. No high-grade stenosis seen. Otherwise unremarkable CT angiography of the neck." MICROBIOLOGY: Please see below. ASSESSMENT: Ms. Han is a 59-year-old female with past medical history of chronic hypertension and trigeminal neuralgia who presented with complaints of transient left upper and lower extremity extremity weakness, worsening of her speech, blurry vision, and dysarthria; patient attributes the symptoms to missing a dose of her Tegretol she has been admitted to rule out TIA/CVA. PLAN: 1. Transient weakness, dysarthria and dysphasia Possibly due to TIA/CVA/adverse reaction to Tegretol / accelerated hypertension Her symptoms have resolved Brain imaging studies are negative so far EKG showed normal sinus rhythm with a heart rate of 80 Plan: admit to PCU / telemetry / ask RN to perform bedside swallow eval / f/u lipid panel for ACVD risk score & A1C, / c/w statin / ASA/follow up echo in the morning / the patient can follow-up with her neurologist to titrate Tegretol on an outpatient basis 2. Hypertensive urgency - resolved Possibly due to missing blood pressure meds Plan: Resume home meds / monitor vitals / low salt diet 3. Anxiety/depression. Plan: Continue alprazolam 4. Low BMI. BMI 17.6. Plan: Follow up with PCP and dietitian an outpatient basis DVT PROPHYLAXIS: SCDs DISPOSITION: Likely home tomorrow if the workup is negative Vital Signs Vital Signs Date Time Temp Pulse Resp B/P (MAP) Pulse Ox O2 Delivery O2 Flow Rate FiO2 06/11/19 08:44 06/11/19 07:17 96.5 86 18 99 Room Air Laboratory Data Labs 24H Laboratory Tests 2 06/11/19 08:08: Bedside Glucose (Misc Panel) 92 06/11/19 08:11: Immature Granulocyte % (Auto) 0.2, Neutrophils (%) (Auto) 76.6H, Lymphocytes (%) (Auto) 15.1L, Monocytes (%) (Auto) 6.5H, Eosinophils (%) (Auto) 0.9, Basophils (%) (Auto) 0.7, Neutrophils # (Auto) 4.3, Lymphocytes # (Auto) 0.8L, Monocytes # (Auto) 0.4, Eosinophils # (Auto) 0.1, Basophils # (Auto) 0.0, Nucleated Red Blood Cells % (auto) 0.0, Prothrombin Time 14.2H, Prothromb Time International Ratio 1.13, Activated Partial Thromboplast Time 26.6, Total Creatine Kinase 34, Creatine Kinase MB < 1.0, Creatine Kinase MB Relative Index 2.94, Troponin I < 0.02, Carbamazepine (Tegretol) Level 6.1 06/11/19 08:13: POC Glucose (Misc Panel) 94, POC Sodium (Misc Panel) 139, POC Potassium (Misc Panel) 4.5, POC Chloride (Misc Panel) 102, POC Total CO2 (Misc Panel) 28.0H, POC Blood Urea Nitrogen (Misc Panel 11, POC Ionized Calcium (Misc Panel) 5.0, POC C reatinine (Misc Panel) 0.5L, POC Hematocrit (Misc Panel) 42.0 06/11/19 08:16: Bedside Prothrombin Time INR 1.2, Prothrombin Time (MISC) 14.3 CBC/BMP Laboratory Tests 06/11/19 08:11 Home Medications Scheduled Carbamazepine (Carbamazepine ER) 200 Mg Tab.er.12h, 200 MG PO BID Carbamazepine (Carbamazepine ER) 200 Mg Tab.er.12h, 100 MG PO DAILY @ NOON Cholecalciferol (Vitamin D3) (Vitamin D3) 1,000 Unit Capsule, 1,000 UNIT PO DAILY Cyanocobalamin (Vitamin B-12) (Vitamin B-12) 500 Mcg Tablet, 1,000 MCG PO DAILY Famotidine (Famotidine) 20 Mg Tablet, 20 MG PO BID Lisinopril (Lisinopril) 10 Mg Tablet, 10 MG PO DAILY Magnesium Oxide (Magnesium) 400 Mg Capsule, 400 MG PO DAILY Mv-Mn/Folic Acid/Vit [id number] (Alive Once Daily Women 50 Plus) 1 Each Tablet, 1 TAB PO DAILY Scheduled PRN Alprazolam (Alprazolam) 0.5 Mg Tablet, 0.5 TAB PO BID PRN for ANXIETY/AGITATION Allergies Coded Allergies: Cephalosporins (Verified Allergy, Unknown, 06/11/19) Penicillins (Verified Allergy, Unknown, 06/11/19) Sulfa (Sulfonamide Antibiotics) (Verified Allergy, Unknown, 06/11/19) amoxicillin (Verified Allergy, Unknown, 06/11/19) ciprofloxacin (Verified Allergy, Unknown, 06/11/19) erythromycin base (Verified Allergy, Unknown, 06/11/19) latex (Verified Allergy, Unknown, 06/11/19) nitrofurantoin (Verified Allergy, Unknown, 06/11/19) A-FIB/CHADSVASC A-FIB History Current/History of A-Fib/PAF?: No Current PO Anticoag Therapy: No MAGGY KONG MD Jun 11, 2019 09:06
[2019-06-11] MEDS ORDERED: ASPIRIN 81 MG CHEW TABLET PO ONE (09:15)
[2019-06-11] MEDS ORDERED: ISOVUE-370 76% 100ML VIAL (Q9967) As Ordered ONE (10:32)
--- NOTE | 2019-06-11 10:57 | REP ---
MR angiography the brain without contrast: History: Left upper and lower extremity weakness. Technique: 3-D [id number] MR angiography of the brain is acquired in the usual fashion and maximal intensity projection images were generated in rotational format about the vertical and horizontal axes. In addition, source axial T1-weighted images are viewed in cine mode. MR angiographic findings: The distal vertebral arteries are patent and co-dominant. Basilar artery is a little tortuous but widely patent. The posterior cerebral and superior cerebellar vessels are normal and symmetric. The distal internal carotid arteries are unremarkable. Anterior and middle cerebral arteries appear intact. There is no visible medrano aneurysm or arteriovenous malformation. Impression: Unremarkable MR angiography the brain. Electronically Signed by Parish Granger MD 06/11/2019 10:49 A
--- NOTE | 2019-06-11 11:09 | REP ---
MRI BRAIN WITHOUT CONTRAST: HISTORY: Left-sided weakness. Comparison is made with CT study of the brain from earlier on this date. TECHNIQUE: Axial and sagittal imaging planes are utilized for T1- and T2-weighted scans. Sequences include spin-echo, fast spin echo, FLAIR, and diffusion weighted sequences. MRI FINDINGS: The bony calvarium is intact. Craniocervical junction and upper cervical cord are normal in appearance. No intraorbital abnormality is seen. There is no MR evidence of significant paranasal sinus disease. There is no evidence of intracranial mass or hemorrhage. Diffusion-weighted scans show no evidence of restricted diffusion to suggest acute ischemia. There are a few scattered foci of periventricular and subcortical white matter T2 hyperintensity consistent with small vessel changes. There is no evidence of acute infarction, extra-axial fluid collection, or midline shift. IMPRESSION: No acute intracranial abnormality. Electronically Signed by Parish Granger MD 06/11/2019 02:29 P
--- NOTE | 2019-06-11 11:38 | REP ---
CT ANGIOGRAPHY OF THE NECK WITH IV CONTRAST: HISTORY: Left upper extremity and left lower extremity weakness. CT CONTRAST DOSE: 100 mL of intravenous Isovue-370. CT FINDINGS: Great vessel origins from the aortic arch are unremarkable. There is mild vascular calcification at the origin of the right subclavian artery. Common carotid arteries are unremarkable bilaterally. Vertebral arteries are widely patent and codominant. There is no evidence of high-grade stenosis in either carotid bifurcation or proximal ICA. The cervical internal carotid artery segments are normal and symmetric. No evidence to suggest carotid artery dissection. The internal carotid arteries are unremarkable. Maximum intensity projection images and surface rendered 3D imaging demonstrates minimal calcific plaquing in each carotid artery bifurcation. There are degenerative disc changes in the cervical spine most pronounced at C5-6. No neck mass or adenopathy is appreciated. IMPRESSION: Minimal carotid artery bifurcation plaquing. No high-grade stenosis seen. Otherwise unremarkable CT angiography of the neck. Electronically Signed by Parish Granger MD 06/11/2019 02:29 P
[2019-06-11 12:00] VITALS: BP 184/87
--- NOTE | 2019-06-11 12:34 | REP ---
CT ANGIOGRAPHY OF THE BRAIN WITH IV CONTRAST: HISTORY: Left upper extremity and left lower extremity weakness. CT CONTRAST DOSE: 100 mL of intravenous Isovue-370. CT FINDINGS: Preliminary digital scout sniper radiograph demonstrates suboccipital craniotomy defect. The patient has a history of Arnold-Chiari malformation. There is a small mucous retention cyst in the right maxillary sinus anteriorly. The other paranasal sinuses are clear. No intraorbital abnormality is seen. There is no evidence of intracranial mass lesion. No evidence of acute infarction is seen. The distal internal carotid arteries are unremarkable. Anterior and middle cerebral arteries appear intact bilaterally. Posterior cerebral and basilar arteries are unremarkable. The distal vertebral arteries are intact and codominant. Sagittal sinus and sigmoid sinuses are patent and symmetric. The straight sinus is unremarkable. No vessel cutoff is seen. IMPRESSION: Unremarkable CT angiography of the brain. Electronically Signed by Parish Granger MD 06/11/2019 02:30 P
[2019-06-11] MEDS: MAGNESIUM OXIDE 400 MG TAB (MAG-OX) PO SCH (14:05)
[2019-06-11] MEDS: CYANOCOBALAMIN 500 MCG TAB PO SCH (14:05)
[2019-06-11] MEDS: ENOXAPARIN 40 MG/0.4 ML SYRINGE (J1650) SC SCH (14:06)
[2019-06-11] MEDS: VITAMIN D 1,000 INTERNATIONAL UNITS TABLET PO SCH (14:06)
[2019-06-11] MEDS: lisinopriL 10 MG TAB PO SCH (14:08)
[2019-06-11] MEDS: carBAMazepine XR 100 MG TAB PO SCH (14:35)
[2019-06-11 16:00] VITALS: BP 159/77
[2019-06-11 20:00] VITALS: BP 138/71
[2019-06-11] MEDS: FAMOTIDINE 20 MG TAB PO SCH (20:58)
[2019-06-11] MEDS: carBAMazepine XR 200 MG TAB PO SCH (20:58)
[2019-06-11] MEDS: ALPRAZolam 0.5 MG TAB PO PRN (20:58)
[2019-06-11] MEDS: ATORVASTATIN 20 MG TAB PO SCH (20:58)
[2019-06-11 23:59] VITALS: BP 144/81
[2019-06-12 04:45] VITALS: BP 134/67
[2019-06-12 05:38] LABS: HEMATOCRIT 42.6 % (36.0-47.0); HEMOGLOBIN 14.5 g/dl (12.0-15.5); MEAN CORPUSCULAR HEMOGLOBIN 33.2 pg (27.0-33.0); MEAN CORPUSCULAR VOLUME 97.5 fl (80.0-96.0); PLATELET COUNT, AUTOMATED 225 10^3/uL (150-450); RED BLOOD COUNT 4.37 10^6/uL (4.00-5.40); WHITE BLOOD COUNT 5.6 10^3/uL (4.0-10.0)
[2019-06-12 07:40] LABS: BLOOD UREA NITROGEN 11 MG/DL (7-18); CALCIUM LEVEL 8.8 MG/DL (8.8-10.2); CARBON DIOXIDE LEVEL 26 MEQ/L (21-32); CHLORIDE LEVEL 107 MEQ/L (98-107); CHOLESTEROL LEVEL 214 MG/DL (<200); CHOLESTEROL RISK RATIO 3.101 (<5); GLOMERULAR FILTRATION RATE > 60.0 (>45); GLUCOSE, FASTING 80 MG/DL (70-100); HDL CHOLESTEROL 69 MG/DL (>40); LDL CHOLESTEROL 133 MG/DL (<100); NON-HDL-C 145 MG/DL; POTASSIUM SERUM 4.1 MEQ/L (3.5-5.1); SODIUM LEVEL 137 MEQ/L (136-145); TRIGLYCERIDES LEVEL 61 MG/DL (<150)
[2019-06-12 07:45] LABS: HEMOGLOBIN A1c 4.8 %
[2019-06-12] MEDS: MAGNESIUM OXIDE 400 MG TAB (MAG-OX) PO SCH (07:53)
[2019-06-12] MEDS: ASPIRIN 81 MG CHEW TABLET PO SCH (07:53)
[2019-06-12] MEDS: FAMOTIDINE 20 MG TAB PO SCH ×2 (07:53→21:00)
[2019-06-12] MEDS: lisinopriL 10 MG TAB PO SCH (07:54)
[2019-06-12] MEDS: VITAMIN D 1,000 INTERNATIONAL UNITS TABLET PO SCH (07:54)
[2019-06-12] MEDS: CYANOCOBALAMIN 500 MCG TAB PO SCH (07:55)
[2019-06-12] MEDS: carBAMazepine XR 200 MG TAB PO SCH ×2 (07:55→18:43)
[2019-06-12] MEDS: ENOXAPARIN 40 MG/0.4 ML SYRINGE (J1650) SC SCH (07:55)
[2019-06-12 08:00] VITALS: BP 178/98
--- NOTE | 2019-06-12 11:22 | DS.PDOC ---
Discharge Summary General Date of Admission Jun 11, 2019 at 07:17 Date of Discharge Jun 13, 2019 Attending Physician: MAGGY KOGN MD Discharge Summary PROCEDURES PERFORMED DURING STAY: Echocardiogram ADMITTING DIAGNOSES: 1. Transient ischemic attack vs. carbamazepine withdrawal 2. Hypertensive urgency 3. Anxiety/depression 4. Low body-mass index 5. Trigeminal neuralgia s/p gamma knife procedure DISCHARGE DIAGNOSES: 1. Carbamazepine withdrawal 2. Chronic HTN 3. Chronic Anxiety/depression COMPLICATIONS/CHIEF COMPLAINT: Dysarthria and left-sided weakness HISTORY OF PRESENT ILLNESS: Zari Han is a 59-year-old female with relevant past medical history of trigeminal neuralgia s/p gamma knife procedure and hypertension who presented to the [facility] emergency department complaining of sudden-onset left upper extremity and left lower extremity weakness associated with blurry vision and difficulty swallowing. Pt has been prescribed Tegretol (carbamazepine), and thinks that her symptoms may have been due to her attempt to stop taking this medication. Pt's symptoms resolved shortly after arriving at the emergency department. Pt's gamma knife procedure had been performed on her left side, and she has continuing difficulty swallowing, slurred speech, and facial droop at baseline. She reported that the symptoms were slightly worse--also noted by her --leading them to seek medical care at this time. HOSPITAL COURSE: Pt was admitted to the progressive care unit with telemetry monitoring. Imaging revealed no acute intracranial process. Electrocardiogram revealed normal sinus rhythm. Telemetry revealed no significant events. Echocardiogram was performed on day of discharge, report pending. Etiology of symptoms most likely due to missed carbamazepine dose, but cannot completely rule out transient ischemic attack. Patient was discharged in stable condition. Date of discharge patient had complete resolution of presenting neurological symptoms. She was excited to go home. She was instructed to follow-up with PCP, and neurology for medication optimization. Pt was examined and deemed stable for discharge with outpatient follow-up (see below). DISCHARGE MEDICATIONS: Please see below. ALLERGIES: Please see below. PHYSICAL EXAMINATION ON DISCHARGE: VITAL SIGNS: Please see below. GENERAL: Pt appears stated age and is sitting upright in bed in no acute distress. HEENT: Normocephalic, atraumatic. CARDIOVASCULAR: Regular rate and rhythm. No murmurs, rubs, or gallops. PULMONARY: Clear to auscultation b/l. No wheezes, rales, or rhonchi. EXTREMITIES: No peripheral edema. Pulses 2+ b/l in upper and lower extremities. NEUROLOGICAL: CNII-IV, -XII intact. PSYCHIATRIC: Pt is calm and cooperative. Pt answers questions appropriately. LABORATORY DATA: Please see below. IMAGIN. CT head without contrast, from report: "No CT evidence of acute infarct. ASPECTS ([place] Stroke Program Early CT Score) is 10." 2. Portable chest x-ray, from report: "No active disease." 3. MRA brain without contrast, from report: "Unremarkable MR angiography the brain." 4. MRI brain without contrast, from report: "No acute intracranial abnormality." 5. CTA neck with IV contrast, from report: "Minimal carotid artery bifurcation plaquing. No high-grade stenosis seen. Otherwise unremarkable CT angiography of the neck." 6. CTA brain with IV contrast, from report: "Unremarkable CT angiography of the brain." 7. Echocardiogram: Report pending at time of discharge. Patient will follow-up echocardiogram PROGNOSIS: Fair ACTIVITY: As tolerated. DIET: Per speech therapy: Pureed solids, thin liquids DISCHARGE PLAN: Home with outpatient follow-up (see below) DISPOSITION: Discharge home. DISCHARGE INSTRUCTIONS: 1. Follow up with your primary care physician within 14 days. 2. Follow up with neurology within 14 days. 2. Follow-up with psychiatrist for depression and anxiety ITEMS TO FOLLOWUP ON ON OUTPATIENT: 1. Echocardiogram results with primary care physician. 2. Tegretol optimization by neurology. 3. Depression and anxiety. 4. Diet and nutrition per low BMI, hypoalbuminemia, and PMH of hyponatremia. DISCHARGE CONDITION: Stable. TIME SPENT ON DISCHARGE: 35 minutes. I was physically present, doing medical student exam and interview, I agree with the discharge summary, and follow up plan. Carlo Torres D.O PGY 3, resident Vital Signs/I&Os Vital Signs Date Time Temp Pulse Resp B/P (MAP) Pulse Ox O2 Delivery O2 Flow Rate FiO2 06/12/19 08:00 97.3 80 18 178/98 (124) 100 Room Air I&O- Last 24 Hours up to 6 AM 06/12/19 05:59 Intake Total 800 ml Output Total 600 ml Balance 200 ml Laboratory Data Labs 24H Laboratory Tests 2 06/12/19 05:13: Nucleated Red Blood Cells % (auto) 0.0, Estimated Mean Plasma Glucose 91, Hemoglobin A1c 4.8 06/12/19 06:34: Anion Gap 4L, Glomerular Filtration Rate > 60.0, Calcium Level 8.8, Triglycerides Level 61, Total Cholesterol 214H, LDL Cholesterol 133H, Non-HDL Cholesterol (LDL + VLDL) 145, Total HDL Cholesterol 69, Cholesterol/HDL Ratio 3.101 CBC/BMP Laboratory Tests 06/12/19 05:13 06/12/19 06:34 Discharge Medications Scheduled Carbamazepine (Carbamazepine ER) 200 Mg Tab.er.12h, 200 MG PO BID, (Reported) Carbamazepine (Carbamazepine ER) 200 Mg Tab.er.12h, 100 MG PO DAILY, (Reported) @ NOON Cholecalciferol (Vitamin D3) (Vitamin D3) 1,000 Unit Capsule, 1,000 UNIT PO DAILY, (Reported) Cyanocobalamin (Vitamin B-12) (Vitamin B-12) 500 Mcg Tablet, 1,000 MCG PO DAILY, (Reported) Famotidine (Famotidine) 20 Mg Tablet, 20 MG PO BID, (Reported) Lisinopril (Lisinopril) 10 Mg Tablet, 10 MG PO DAILY, (Reported) Magnesium Oxide (Magnesium) 400 Mg Capsule, 400 MG PO DAILY, (Reported) Mv-Mn/Folic Acid/Vit [id number] (Alive Once Daily Women 50 Plus) 1 Each Tablet, 1 TAB PO DAILY, (Reported) Nystatin (Nystatin Oral Susp) 100,000 Unit/1 Ml Oral.susp, 5 ML PO QID Scheduled PRN Alprazolam (Alprazolam) 0.5 Mg Tablet, 0.5 TAB PO BID PRN for ANXIETY/AGITATION, (Reported) Allergies Coded Allergies: Cephalosporins (Verified Allergy, Unknown, 06/11/19) Penicillins (Verified Allergy, Unknown, 06/11/19) Sulfa (Sulfonamide Antibiotics) (Verified Allergy, Unknown, 06/11/19) amoxicillin (Verified Allergy, Unknown, 06/11/19) ciprofloxacin (Verified Allergy, Unknown, 06/11/19) erythromycin base (Verified Allergy, Unknown, 06/11/19) latex (Verified Allergy, Unknown, 06/11/19) nitrofurantoin (Verified Allergy, Unknown, 06/11/19) GME ATTESTATION GME ATTESTATION My faculty preceptor for this patient encounter was physically present during the encounter and was fully available. All aspects of the patient interview, examination, medical decision making process, and medical care plan development were reviewed and approved by the faculty preceptor. The faculty preceptor is aware and concurs with the plan as stated in the body of this note and will attest to such by his/her cosignature. ATTENDING NOTE I examined the patient, at 7:40 AM. The senior resident was present with the student while he examined the patient. I discussed the case with both the student and senior resident, reviewed and verified this note written by the student, edited it, and agree with the findings as documented. DUY SILVESTRE OMS-III Jun 12, 2019 11:18 MAGGY KONG MD Jun 13, 2019 19:13 CARLO TORRES DO Jun 13, 2019 19:39
[2019-06-12 12:00] VITALS: BP 150/98
[2019-06-12] MEDS: NYSTATIN 500,000 U/5 ML SUSP UDC PO SCH ×3 (12:37→23:47)
[2019-06-12] MEDS: carBAMazepine XR 100 MG TAB PO SCH (12:37)
[2019-06-12] MEDS ORDERED: lisinopriL 10 MG TAB PO ONE (15:00)
[2019-06-12 16:00] VITALS: BP 140/98
[2019-06-12] MEDS ORDERED: NYSTATIN 500,000 U/5 ML SUSP UDC PO SCH (18:00)
--- NOTE | 2019-06-12 18:54 | IPNPDOC ---
Text Note Date of Service The patient was seen on 06/12/19. NOTE This is a 59-year-old female with a history of trigeminal neuralgia status post gamma knife who presented with c/o of some difficulty swallowing, slurred speech and facial droop and left sided weakness that is admitted to r/o TIA; her symptoms may be 2/2 tegretol withdrawal. SUBJECTIVE: Patient was examined at bedside. She had no overnight events. She has several questions about her condition and medications. All of which was addressed appropriately PHYSICAL EXAMINATION: VITAL SIGNS: Please see below. GEN: Pleasant, elderly female, resting comfortably in bed, surrounded by family HEENT: white discharge on tounge Heart: Regular rate and rhythm, no murmurs, rubs or gallops LUNGS: CTAB ABDOMEN: soft & not tender with palpation MSK/EXTREMITIES: range of motion intact in all 4 extremities NEURO: strength is 5/5 / sensation intact in all 4 extremities ASSESSMENT: PLAN: 1. Transient weakness, dysarthria and dysphasia -resolved Possibly due adverse reaction to Tegretol / accelerated hypertension -Brain imaging studies are negative so far -EKG showed normal sinus rhythm with a heart rate of 80 -Speech Pathologist recommended pureed diet. -Telemetry -Started Statin therapy -ASA -can follow-up with her neurologist to titrate Tegretol on an outpatient basis -Pending Echo 2. Hypertensive urgency - resolved -Possibly due to missing blood pressure meds -Resume home meds / monitor vitals / low salt diet 3. Anxiety/depression. -Continue alprazolam 4. Low BMI. BMI 17.6. 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 Oral Thrus - nystatin swish and swallow DVT PROPHYLAXIS: SCDs DISPOSITION: Likely home tomorrow pending Echo will upgrade to in-patient admission bc her stay has crossed 2 midnight's VS,Fishbone, I+O VS, Fishbone, I+O Laboratory Tests 1/20/20 05:13 06/12/19 06:34 Vital Signs Date Time Temp Pulse Resp B/P (MAP) Pulse Ox O2 Delivery O2 Flow Rate FiO2 06/12/19 16:00 97.8 82 18 140/98 (112) 100 Room Air I&O- Last 24 Hours up to 6 AM 06/12/19 06:00 Intake Total 800 ml Output Total 600 ml Balance 200 ml GME ATTESTATION GME ATTESTATION My faculty preceptor for this patient encounter was physically present during the encounter and was fully available. All aspects of the patient interview, examination, medical decision making process, and medical care plan development were reviewed and approved by the faculty preceptor. The faculty preceptor is aware and concurs with the plan as stated in the body of this note and will atte st to such by his/her cosignature. ATTENDING NOTE I examined Ms. Han at 8:40 AM reviewed and negative. Dr. Torres's note and agree with the findings as documented JEANNIE TORRES DO Jun 12, 2019 18:54 MAGGY KONG MD Jun 12, 2019 19:02
--- NOTE | 2019-06-12 18:56 | IPNPDOC ---
Text Note Date of Service The patient was seen on 06/12/19. VS,Mateuszbone, I+O VS, Fishbone, I+O Laboratory Tests 06/12/19 05:13 06/12/19 06:34 Vital Signs Date Time Temp Pulse Resp B/P (MAP) Pulse Ox O2 Delivery O2 Flow Rate FiO2 06/12/19 16:00 97.8 82 18 140/98 (112) 100 Room Air I&O- Last 24 Hours up to 6 AM 06/12/19 06:00 Intake Total 800 ml Output Total 600 ml Balance 200 ml MAGGY KONG MD Jun 12, 2019 18:56
[2019-06-12 20:00] VITALS: BP 130/60
[2019-06-12] MEDS: ATORVASTATIN 20 MG TAB PO SCH (21:00)
[2019-06-12] MEDS: ALPRAZolam 0.5 MG TAB PO PRN (21:15)
[2019-06-12 23:59] VITALS: BP 151/79
[2019-06-13 04:00] VITALS: BP 138/74
--- NOTE | 2019-06-13 05:50 | ECGEPIP ---
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
[2019-06-13] MEDS: carBAMazepine XR 200 MG TAB PO SCH (06:11)
[2019-06-13] MEDS: NYSTATIN 500,000 U/5 ML SUSP UDC PO SCH ×2 (06:11→12:41)
[2019-06-13 08:00] VITALS: BP 125/72
[2019-06-13] MEDS ORDERED: lisinopriL 20 MG TAB PO SCH (09:00)
[2019-06-13] MEDS ORDERED: MIRALAX *UNIT DOSE* 17GM PACKET PO SCH (09:00)
[2019-06-13] MEDS: ASPIRIN 81 MG CHEW TABLET PO SCH (09:01)
[2019-06-13] MEDS: FAMOTIDINE 20 MG TAB PO SCH (09:01)
[2019-06-13] MEDS: MAGNESIUM OXIDE 400 MG TAB (MAG-OX) PO SCH (09:01)
[2019-06-13 09:03] VITALS: BP 142/84
[2019-06-13] MEDS: CYANOCOBALAMIN 500 MCG TAB PO SCH (09:03)
[2019-06-13] MEDS: VITAMIN D 1,000 INTERNATIONAL UNITS TABLET PO SCH (09:03)
[2019-06-13] MEDS: ENOXAPARIN 40 MG/0.4 ML SYRINGE (J1650) SC SCH (09:04)
[2019-06-13 12:00] VITALS: BP 130/74
--- NOTE | 2019-06-13 12:34 | DS.PDOC ---
Discharge Summary General Date of Admission Jun 11, 2019 at 07:17 Discharge Summary PROCEDURES PERFORMED DURING STAY: [None]. ADMITTING DIAGNOSES: 1. . DISCHARGE DIAGNOSES: 1. . COMPLICATIONS/CHIEF COMPLAINT: TIA. HISTORY OF PRESENT ILLNESS: . HOSPITAL COURSE: . DISCHARGE MEDICATIONS: Please see below. ALLERGIES: Please see below. PHYSICAL EXAMINATION ON DISCHARGE: VITAL SIGNS: Please see below. GENERAL: HEENT: NECK: CARDIOVASCULAR EXAMINATION: RESPIRATORY EXAMINATION: ABDOMINAL EXAMINATION: EXTREMITIES: SKIN: NEUROLOGICAL EXAMINATION: PSYCHIATRIC EXAMINATION: LABORATORY DATA: Please see below. IMAGING: PROGNOSIS: ACTIVITY: [As tolerated]. DIET: DISCHARGE PLAN: DISPOSITION: . DISCHARGE INSTRUCTIONS: 1. . ITEMS TO FOLLOWUP ON ON OUTPATIENT: 1. . DISCHARGE CONDITION: [Stable]. TIME SPENT ON DISCHARGE: Greater than minutes. Vital Signs/I&Os Vital Signs Date Time Temp Pulse Resp B/P (MAP) Pulse Ox O2 Delivery O2 Flow Rate FiO2 06/13/19 12:00 97.2 75 18 130/74 (92) 99 Room Air I&O- Last 24 Hours up to 6 AM 06/13/19 06:00 Intake Total 1800 ml Output Total 3050 ml Balance -1250 ml Discharge Medications Scheduled Carbamazepine (Carbamazepine ER) 200 Mg Tab.er.12h, 200 MG PO BID, (Reported) Carbamazepine (Carbamazepine ER) 200 Mg Tab.er.12h, 100 MG PO DAILY, (Reported) @ NOON Cholecalciferol (Vitamin D3) (Vitamin D3) 1,000 Unit Capsule, 1,000 UNIT PO DAILY, (Reported) Cyanocobalamin (Vitamin B-12) (Vitamin B-12) 500 Mcg Tablet, 1,000 MCG PO DAILY, (Reported) Famotidine (Famotidine) 20 Mg Tablet, 20 MG PO BID, (Reported) Lisinopril (Lisinopril) 10 Mg Tablet, 10 MG PO DAILY, (Reported) Magnesium Oxide (Magnesium) 400 Mg Capsule, 400 MG PO DAILY, (Reported) Mv-Mn/Folic Acid/Vit K/Ucir244 (Alive Once Daily Women 50 Plus) 1 Each Tablet, 1 TAB PO DAILY, (Reported) Scheduled PRN Alprazolam (Alprazolam) 0.5 Mg Tablet, 0.5 TAB PO BID PRN for ANXIETY/AGITATION, (Reported) Allergies Coded Allergies: Cephalosporins (Verified Allergy, Unknown, 06/11/19) Penicillins (Verified Allergy, Unknown, 06/11/19) Sulfa (Sulfonamide Antibiotics) (Verified Allergy, Unknown, 06/11/19) amoxicillin (Verified Allergy, Unknown, 06/11/19) ciprofloxacin (Verified Allergy, Unknown, 06/11/19) erythromycin base (Verified Allergy, Unknown, 06/11/19) latex (Verified Allergy, Unknown, 06/11/19) nitrofurantoin (Verified Allergy, Unknown, 06/11/19) MAGGY KONG MD Jun 13, 2019 12:34
[2019-06-13] MEDS: carBAMazepine XR 100 MG TAB PO SCH (12:41)
[2019-06-13] MEDS ORDERED: NYST50SS PO (13:30)
--- NOTE | 2019-06-13 20:35 | ECHO ---
DATE OF PROCEDURE: 06/13/2019 REFERRING PHYSICIAN: Dr. Vásquez INDICATION: Transient ischemic attack (TIA). Height 170 cm, weight 51 kg. DIMENSIONS: IVS: 1.0 LV: 3.8 LVPW: 1.0 LA: 2.7 Aorta: 2.9 IVC: 1.9 Mitral E wave velocity: 57 A wave: 73 E prime septal: 5.9 E prime lateral: 8.4 FINDINGS: The study is of good technical quality. The patient is in sinus rhythm. Left ventricle is normal size and systolic function with estimated left ventricular ejection fraction (LVEF) 65-70%. Right ventricle is also normal size and systolic function. Both atria appear normal. All four cardiac valves were reasonably well seen and appear normal. No pericardial effusion is noted. Inferior vena cava is normal size and appropriately collapses with inspiration indicative of normal central venous pressure. Aortic root, aortic arch and abdominal aorta appear normal. Doppler interrogation reveals competent aortic and mitral valves. There is trace tricuspid insufficiency, calculated pulmonary artery pressure is within normal limits. Pulmonic valve is functionally competent as well. Mitral inflow pattern and tissue Doppler imaging of mitral annulus revealed grade 1 diastolic dysfunction. CONCLUSIONS: 1. Study is of good technical quality, the patient is in sinus rhythm. 2. Normal left ventricular (LV) size and systolic function, grade 1 diastolic dysfunction. 3. No significant valvular disease. 4. Likely normal central venous pressure and normal pulmonary artery pressure. COMMENT: Subacute bacterial endocarditis (SBE) prophylaxis is not recommended. Essentially normal echocardiogram for patient's age.
== END 2019-06-13 14:05 | disposition home or self-care (01) ==
LOC: M ED 07:16 → M ED INP 07:17 → ENRESERV 11:05 → M PCU 11:58
PROVIDERS: ADMIT Internal Medicine; ATTEND Internal Medicine
DX: F13.239 Sedative, hypnotic or anxiolytic dependence with withdrawal, unspecified (principal); T42.1X6A Underdosing of iminostilbenes, initial encounter; I16.0 Hypertensive urgency; B37.0 Candidal stomatitis; F41.9 Anxiety disorder, unspecified; F32.9 Major depressive disorder, single episode, unspecified; Z68.1 Body mass index [BMI] 19.9 or less, adult; G50.0 Trigeminal neuralgia; K21.9 Gastro-esophageal reflux disease without esophagitis; E78.5 Hyperlipidemia, unspecified; Z79.899 Other long term (current) drug therapy; Z88.1 Allergy status to other antibiotic agents; Z88.0 Allergy status to penicillin; Z88.2 Allergy status to sulfonamides; Z91.040 Latex allergy status
CPT/HCPCS: 36415; 70450; 70496; 70498; 70544; 70551; 71045; 80047; 80048; 80061; 80156; 82550; 82553; 83036; 84146; 84443; 84484; 85025; 85027; 85610; 85730; 86850; 86900; 86901; 92526; 92610; 93005; 93041; 93306; 94760; 96372; 97161; 97165; 99285; J1650; Q9967

== ENCOUNTER → 2019-06-19 | Outpatient (CLI) | payer BC ==
[~2019-06-19] MED LIST changes: +ALIVTAB PO; +ALPR0.5T3 PO; +CARB1CAP3 PO; +CARB200T98 PO; +FAMO1TAB11 PO; +LISI10TA4 PO; +MAGN400C2 PO; +NYST50SS PO; +VITA100054 PO; +VITA500T41 PO
== END ==
LOC: M PLALAB 14:28
PROVIDERS: ATTEND Physician Assistant
DX: Z53.9 Procedure and treatment not carried out, unspecified reason (principal)

== ENCOUNTER → 2019-06-20 | Outpatient (CLI) | payer BC ==
[2019-06-20 07:12] LABS: BASO % 0.4 % (0.0-1.0); EOS # 0.1 10^3/uL (0.0-0.5); HEMATOCRIT 46.2 % (36.0-47.0); HEMOGLOBIN 15.1 g/dl (12.0-15.5); LYMPH # 1.2 10^3/uL (1.5-5.0); LYMPH % 14.1 % (24.0-44.0); MEAN CORPUSCULAR HEMOGLOBIN 32.5 pg (27.0-33.0); MEAN CORPUSCULAR HGB CONC 32.7 g/dl (32.0-36.5); MEAN CORPUSCULAR VOLUME 99.6 fl (80.0-96.0); MONO # 0.3 10^3/uL (0.0-0.8); MONO % 3.1 % (0.0-5.0); NEUTROPHILS # 6.7 10^3/uL (1.5-8.5); NEUTROPHILS % 80.9 % (36.0-66.0); PLATELET COUNT, AUTOMATED 225 10^3/uL (150-450); RED BLOOD COUNT 4.64 10^6/uL (4.00-5.40); WHITE BLOOD COUNT 8.3 10^3/uL (4.0-10.0)
[2019-06-20 07:39] LABS: BLOOD UREA NITROGEN 13 MG/DL (7-18); CALCIUM LEVEL 9.5 MG/DL (8.8-10.2); CARBON DIOXIDE LEVEL 29 MEQ/L (21-32); CHLORIDE LEVEL 99 MEQ/L (98-107); CREATININE FOR GFR 0.69 MG/DL (0.55-1.30); GLOMERULAR FILTRATION RATE > 60.0 (>45); GLUCOSE, FASTING 105 MG/DL (70-100); IRON (FE) 137 UG/DL (50-170); MAGNESIUM LEVEL 2.4 MG/DL (1.8-2.4); PERCENT SATURATION 47.6 % (13.2-45.0); POTASSIUM SERUM 4.4 MEQ/L (3.5-5.1); SODIUM LEVEL 134 MEQ/L (136-145); TOTAL IRON BINDING CAPACITY 288 UG/DL (250-450)
[2019-06-20 09:42] LABS: FOLATE 15.2 NG/ML; TOTAL 25(OH) VITAMIN D 40.8 NG/ML (30.0-100.0); VITAMIN B12 LEVEL 560 PG/ML
== END ==
LOC: M LAB 06:24
PROVIDERS: ATTEND Physician Assistant
DX: E87.1 Hypo-osmolality and hyponatremia (principal); R53.83 Other fatigue

== ENCOUNTER → 2019-07-10 | Outpatient (CLI) | payer BC ==
[2019-07-10 18:03] LABS: BLOOD UREA NITROGEN 17 MG/DL (7-18); CARBON DIOXIDE LEVEL 31 MEQ/L (21-32); CHLORIDE LEVEL 99 MEQ/L (98-107); CREATININE FOR GFR 0.62 MG/DL (0.55-1.30); GLOMERULAR FILTRATION RATE > 60.0 (>45); GLUCOSE, FASTING 87 MG/DL (70-100); POTASSIUM SERUM 4.2 MEQ/L (3.5-5.1); SODIUM LEVEL 134 MEQ/L (136-145)
== END ==
LOC: M PLALAB 14:14
PROVIDERS: ATTEND Family Medicine
DX: E87.1 Hypo-osmolality and hyponatremia (principal)

== ENCOUNTER → 2019-07-20 | Outpatient (CLI) | payer BC ==
[2019-07-20 11:30] LABS: BLOOD UREA NITROGEN 17 MG/DL (7-18); CALCIUM LEVEL 8.5 MG/DL (8.8-10.2); CARBON DIOXIDE LEVEL 26 MEQ/L (21-32); CHLORIDE LEVEL 96 MEQ/L (98-107); GLOMERULAR FILTRATION RATE > 60.0 (>45); GLUCOSE, FASTING 96 MG/DL (70-100); POTASSIUM SERUM 4.4 MEQ/L (3.5-5.1); SODIUM LEVEL 130 MEQ/L (136-145)
== END ==
LOC: M LAB 10:43
PROVIDERS: ATTEND Family Medicine
DX: E87.1 Hypo-osmolality and hyponatremia (principal)

== ENCOUNTER → 2019-07-31 | Outpatient (CLI) | payer BC ==
[2019-07-31 13:28] LABS: BLOOD UREA NITROGEN 20 MG/DL (7-18); CALCIUM LEVEL 9.2 MG/DL (8.8-10.2); CARBON DIOXIDE LEVEL 28 MEQ/L (21-32); CHLORIDE LEVEL 97 MEQ/L (98-107); GLOMERULAR FILTRATION RATE > 60.0 (>45); GLUCOSE, FASTING 99 MG/DL (70-100); POTASSIUM SERUM 5.4 MEQ/L (3.5-5.1); SODIUM LEVEL 130 MEQ/L (136-145)
== END ==
LOC: M PLALAB 11:08
PROVIDERS: ATTEND Family Medicine
DX: E87.1 Hypo-osmolality and hyponatremia (principal)

== ENCOUNTER → 2019-08-22 | Outpatient (REF) | payer BC ==
[2019-08-22 17:38] LABS: OSMOLALITY URINE 270 MOSM/KG (500-800)
[2019-08-22 17:55] LABS: SODIUM,RANDOM URINE 37 MEQ/L
[2019-08-22 18:11] LABS: CHOLESTEROL RISK RATIO 2.896 (<5); CORTISOL BASELINE 16.2 UG/DL (4.3-22.4); FREE T4 0.87 NG/DL (0.76-1.46); THYROID STIMULATING HORMONE 1.05 uIU/ML (0.358-3.740)
== END ==
LOC: M LAB REF 16:56
PROVIDERS: ATTEND Internal Medicine Nephrology
DX: E87.1 Hypo-osmolality and hyponatremia (principal)

== ENCOUNTER → 2019-09-07 | Outpatient (REF) | payer BC ==
[2019-09-09 15:09] LABS: SSA SJOGRENS A <0.2 AI (0.0-0.9); SSB SJOGRENS B <0.2 AI (0.0-0.9)
== END ==
LOC: M LAB REF 14:04
PROVIDERS: ATTEND Internal Medicine Nephrology
DX: E22.2 Syndrome of inappropriate secretion of antidiuretic hormone (principal)

== ENCOUNTER → 2019-09-20 | Outpatient (CLI) | payer BC ==
[2019-09-20 14:34] LABS: BLOOD UREA NITROGEN 20 MG/DL (7-18); CALCIUM LEVEL 9.1 MG/DL (8.8-10.2); CARBON DIOXIDE LEVEL 29 MEQ/L (21-32); CHLORIDE LEVEL 105 MEQ/L (98-107); CREATININE FOR GFR 0.68 MG/DL (0.55-1.30); GLOMERULAR FILTRATION RATE > 60.0 (>45); GLUCOSE, FASTING 98 MG/DL (70-100); POTASSIUM SERUM 4.5 MEQ/L (3.5-5.1); SODIUM LEVEL 139 MEQ/L (136-145)
== END ==
LOC: M PLALAB 09:44
PROVIDERS: ATTEND Family Medicine
DX: E87.1 Hypo-osmolality and hyponatremia (principal)

== ENCOUNTER → 2019-11-16 | Outpatient (CLI) | payer BC ==
[~2019-11-16] MED LIST changes: +AMLO1TAB24 PO; -AMLO5TAB6 PO
[2019-11-16 10:42] LABS: PLATELET COUNT, AUTOMATED 190 10^3/uL (150-450)
[2019-11-16 11:15] LABS: ALBUMIN 4.2 GM/DL (3.2-5.2); BILIRUBIN,DIRECT 0.1 MG/DL (0.0-0.2); BILIRUBIN,TOTAL 0.3 MG/DL (0.2-1.0); CARBAMAZEPINE (TEGRETOL) LEVEL 7.8 UG/ML (4.0-10.0); TOTAL PROTEIN 7.1 GM/DL (6.4-8.2)
== END ==
LOC: M LAB 09:20
PROVIDERS: ATTEND Family Medicine
DX: G50.0 Trigeminal neuralgia (principal)

== ENCOUNTER → 2020-05-20 | Outpatient (CLI) | payer BC ==
--- NOTE | 2020-05-20 10:08 | REPVR ---
PROCEDURE INFORMATION: Exam: CT Maxillofacial Without Contrast, Sinus Exam date and time: 05/20/2020 9:53 AM Age: 60 years old Clinical indication: Pain; Other: Sinusitis; Additional info: HX of max polyps and sinusitis TECHNIQUE: Imaging protocol: CT Maxillofacial without contrast. Focus on the sinuses. Radiation optimization: All CT scans at this facility use at least one of these dose optimization techniques: automated exposure control; mA and/or kV adjustment per patient size (includes targeted exams where dose is matched to clinical indication); or iterative reconstruction. COMPARISON: No relevant prior studies available. FINDINGS: Frontal sinuses: Normal. No air-fluid levels. Normal bilateral frontal recesses. Ethmoid air cells: Normal. No air-fluid levels. Sphenoid sinuses: Normal. No air-fluid levels. Normal bilateral sphenoid ostia. Maxillary sinuses: An 11 mm cyst/polyp is present in the anterior inferior medial right maxillary sinus. Previous bilateral maxillary sinus uncinatectomies Nasal cavity/Septum: Unremarkable. Orbital cavity: Orbits are normal. Globes are unremarkable. Bones/joints: Previous bilateral lateral occipital craniectomies with cranioplasty. Soft tissues: Unremarkable. IMPRESSION: 1. Right maxillary sinus cyst/polyp. 2. Previous bilateral maxillary sinus uncinatectomies 3. Postoperative bilateral posterior fossa changes as above. 4. No specific evidence of sinusitis. Electronically signed by: Rd Cloud On 05/20/2020 10:08:55 AM
== END ==
LOC: M RAD 09:39
PROVIDERS: ATTEND Family Medicine
DX: J33.8 Other polyp of sinus (principal)

== ENCOUNTER → 2020-09-03 | Outpatient (CLI) | payer BC ==
[~2020-09-03] MED LIST changes: +LISI10TA22 PO; -LISI10TA4 PO
[2020-09-03 18:33] LABS: ALBUMIN 4.1 GM/DL (3.2-5.2); ALT/SGPT 24 U/L (12-78); BILIRUBIN,DIRECT < 0.1 MG/DL (0.0-0.2); BILIRUBIN,TOTAL 0.2 MG/DL (0.2-1.0); CARBAMAZEPINE (TEGRETOL) LEVEL 8.9 UG/ML (4.0-10.0); TOTAL PROTEIN 6.9 GM/DL (6.4-8.2)
== END ==
LOC: M PLALAB 14:35
PROVIDERS: ATTEND Psychiatry & Neurology Neurology
DX: G50.0 Trigeminal neuralgia (principal)

== ENCOUNTER → 2020-12-13 | Outpatient (CLI) | payer BC ==
[2020-12-13 07:18] LABS: BASO % 0.6 % (0.0-1.0); EOS # 0.1 10^3/uL (0.0-0.5); EOS % 2.4 % (0.0-3.0); HEMATOCRIT 46.7 % (36.0-47.0); HEMOGLOBIN 15.6 g/dl (12.0-15.5); LYMPH # 1.5 10^3/uL (1.5-5.0); MEAN CORPUSCULAR HEMOGLOBIN 33.1 pg (27.0-33.0); MEAN CORPUSCULAR HGB CONC 33.4 g/dl (32.0-36.5); MEAN CORPUSCULAR VOLUME 98.9 fl (80.0-96.0); MONO # 0.4 10^3/uL (0.0-0.8); MONO % 6.8 % (2.0-8.0); NEUTROPHILS # 3.3 10^3/uL (1.5-8.5); PLATELET COUNT, AUTOMATED 177 10^3/uL (150-450); RED BLOOD COUNT 4.72 10^6/uL (4.00-5.40); WHITE BLOOD COUNT 5.3 10^3/uL (4.0-10.0)
[2020-12-13 07:38] LABS: ERYTHROCYTE SEDIMENTATION RATE 2 mm/hr (0-30)
[2020-12-13 07:49] LABS: BLOOD UREA NITROGEN 15 MG/DL (7-18); CALCIUM LEVEL 9.6 MG/DL (8.8-10.2); CARBON DIOXIDE LEVEL 32 MEQ/L (21-32); CHLORIDE LEVEL 106 MEQ/L (98-107); CREATININE FOR GFR 0.76 MG/DL (0.55-1.30); GLOMERULAR FILTRATION RATE > 60.0 (>45); GLUCOSE, FASTING 88 MG/DL (70-100); POTASSIUM SERUM 4.4 MEQ/L (3.5-5.1); RHEUMATOID FACTOR QUANT < 10.0 IU/ML (<15.0); SODIUM LEVEL 142 MEQ/L (136-145)
[2020-12-16 15:07] LABS: ANGIOTENSIN 1 CONVERTING ENZYM 28 U/L (14-82); ANTINUCLEAR ANTIBODIES DIRECT Negative (Negative); SJOGREN'S ANTI SS-A <0.2 AI (0.0-0.9); SJOGREN'S ANTI SS-B <0.2 AI (0.0-0.9)
== END ==
LOC: M LAB 06:30
PROVIDERS: ATTEND Otolaryngology
DX: J31.0 Chronic rhinitis (principal)

== ENCOUNTER → 2020-12-13 | Outpatient (CLI) | payer BC ==
[2020-12-13 07:18] LABS: BASO % 0.8 % (0.0-1.0); EOS # 0.1 10^3/uL (0.0-0.5); EOS % 2.7 % (0.0-3.0); HEMATOCRIT 46.8 % (36.0-47.0); HEMOGLOBIN 15.5 g/dl (12.0-15.5); LYMPH # 1.5 10^3/uL (1.5-5.0); LYMPH % 27.6 % (24.0-44.0); MEAN CORPUSCULAR HEMOGLOBIN 32.8 pg (27.0-33.0); MEAN CORPUSCULAR HGB CONC 33.1 g/dl (32.0-36.5); MEAN CORPUSCULAR VOLUME 98.9 fl (80.0-96.0); MONO # 0.4 10^3/uL (0.0-0.8); MONO % 7.4 % (2.0-8.0); NEUTROPHILS # 3.2 10^3/uL (1.5-8.5); NEUTROPHILS % 61.3 % (36.0-66.0); PLATELET COUNT, AUTOMATED 172 10^3/uL (150-450); RED BLOOD COUNT 4.73 10^6/uL (4.00-5.40); WHITE BLOOD COUNT 5.3 10^3/uL (4.0-10.0)
[2020-12-13 07:48] LABS: ALT/SGPT 31 U/L (12-78); BILIRUBIN,TOTAL 0.5 MG/DL (0.2-1.0); BLOOD UREA NITROGEN 16 MG/DL (7-18); CALCIUM LEVEL 9.3 MG/DL (8.8-10.2); CARBON DIOXIDE LEVEL 31 MEQ/L (21-32); CHLORIDE LEVEL 105 MEQ/L (98-107); CREATININE FOR GFR 0.74 MG/DL (0.55-1.30); GLOMERULAR FILTRATION RATE > 60.0 (>45); GLUCOSE, FASTING 95 MG/DL (70-100); POTASSIUM SERUM 4.6 MEQ/L (3.5-5.1); SODIUM LEVEL 142 MEQ/L (136-145); TRIGLYCERIDES LEVEL 100 MG/DL (<150)
[2020-12-13 07:49] LABS: ALBUMIN 4.6 GM/DL (3.2-5.2); CHOLESTEROL LEVEL 261 MG/DL (<200); CHOLESTEROL RISK RATIO 3.303 (<5); FREE T4 0.74 NG/DL (0.76-1.46); HDL CHOLESTEROL 79 MG/DL (>40); LDL CHOLESTEROL 162 MG/DL (<100); NON-HDL-C 182 MG/DL; TOTAL PROTEIN 7.3 GM/DL (6.4-8.2)
== END ==
LOC: M LAB 06:32
PROVIDERS: ATTEND Family Medicine
DX: Z13.29 Encounter for screening for other suspected endocrine disorder (principal)

== ENCOUNTER → 2021-03-04 | Outpatient (REF) | payer BC | LOC: M LAB REF 16:55 | PROVIDERS: ATTEND Family Medicine | DX: J01.00 Acute maxillary sinusitis, unspecified (principal) ==

== ENCOUNTER → 2021-03-10 | Outpatient (CLI) | payer BC ==
[2021-03-10 18:38] LABS: ALBUMIN 4.2 GM/DL (3.2-5.2); ALT/SGPT 38 U/L (12-78); BILIRUBIN,DIRECT < 0.1 MG/DL (0.0-0.2); BILIRUBIN,TOTAL 0.2 MG/DL (0.2-1.0); CARBAMAZEPINE (TEGRETOL) LEVEL 8.4 UG/ML (4.0-10.0); TOTAL PROTEIN 7.3 GM/DL (6.4-8.2)
== END ==
LOC: M PLALAB 14:59
PROVIDERS: ATTEND Psychiatry & Neurology Neurology
DX: G50.0 Trigeminal neuralgia (principal)

== ENCOUNTER → 2021-03-24 | Outpatient (CLI) | payer BC ==
--- NOTE | 2021-03-24 17:49 | REPVR ---
PROCEDURE INFORMATION: Exam: CT Maxillofacial Without Contrast, Sinus Exam date and time: 03/24/2021 5:26 PM Age: 60 years old Clinical indication: Sinusitis; Type not specified TECHNIQUE: Imaging protocol: CT Maxillofacial without contrast. Focus on the sinuses. Radiation optimization: All CT scans at this facility use at least one of these dose optimization techniques: automated exposure control; mA and/or kV adjustment per patient size (includes targeted exams where dose is matched to clinical indication); or iterative reconstruction. COMPARISON: CT Maxilofacial w/out contrast 05/20/2020 10:02 AM FINDINGS: Frontal sinuses: Trace fluid in the left frontal sinus. The left frontal recess is opacified by mucosal disease. Ethmoid air cells: Mild left anterior ethmoid mucosal thickening. Sphenoid sinuses: Left sphenoid sinus pneumatization extends into the anterior clinoid. The dividing sphenoid sinus septum inserts on the right carotid canal. The sphenoid sinuses and sphenoid ostia are clear and patent. Maxillary sinuses: Retention cyst or polyp in the right maxillary sinus, as before. Prior left uncinectomy and nasal antral window procedure as well as right uncinectomy. The surgical drainage pathways are patent. Nasal cavity/Septum: Aspen right deviation and spurring of the nasal septum which contacts the right middle turbinate. Orbital cavity: Orbits are normal. Globes are unremarkable. Bones/joints: Prior bilateral retrosigmoid craniotomy. Soft tissues: Unremarkable. Mastoid air cells: Focal opacification of a dependent right mastoid air cell, as before. IMPRESSION: 1. Localized left frontal sinus disease causing opacification of the left frontal recess. There is trace fluid in the left frontal sinus. 2. Otherwise no significant interval change. Electronically signed by: Riddhi Snell On 03/24/2021 17:48:52 PM
== END ==
LOC: M RAD 17:18
PROVIDERS: ATTEND Family Medicine
DX: J32.0 Chronic maxillary sinusitis (principal)

== ENCOUNTER → 2021-04-24 | Outpatient (REF) | payer BC ==
[~2021-04-24] MED LIST changes: +OLOP1SPR NARES
== END ==
LOC: M WUC 15:32
PROVIDERS: ATTEND Physician Assistant
DX: R05.9 Cough, unspecified (principal)

== ENCOUNTER 2021-05-17 05:56 | Emergency (ER) | payer BC ==
[~2021-05-17] VITALS: Ht 167.6 cm; Wt 60.5 kg
[~2021-05-17 05:56] MED LIST changes: -OLOP1SPR NARES
[2021-05-17] MEDS ORDERED: OLOP1SPR NARES (06:18)
--- NOTE | 2021-05-17 07:04 | REP ---
INDICATION: coughing then spitting up blood COMPARISON: 06/11/2019 TECHNIQUE: PA and lateral. FINDINGS: The mediastinum and cardiac silhouette are normal. The lung gregory are clear and without acute consolidation, effusion, or pneumothorax. The skeletal structures are intact and normal. IMPRESSION: No acute cardiopulmonary process. <Electronically signed by Mandeep Warner > 05/17/21 0700
[2021-05-17 08:52] LABS: HEMATOCRIT 46.8 % (36.0-47.0); HEMOGLOBIN 15.6 g/dl (12.0-15.5); MEAN CORPUSCULAR HEMOGLOBIN 32.8 pg (27.0-33.0); MEAN CORPUSCULAR HGB CONC 33.3 g/dl (32.0-36.5); MEAN CORPUSCULAR VOLUME 98.5 fl (80.0-96.0); PLATELET COUNT, AUTOMATED 191 10^3/uL (150-450); RED BLOOD COUNT 4.75 10^6/uL (4.00-5.40); WHITE BLOOD COUNT 5.8 10^3/uL (4.0-10.0)
[2021-05-17 09:10] LABS: PROTHROMBIN TIME 14.6 SECONDS (12.7-14.5)
[2021-05-17 09:11] LABS: PARTIAL THROMBOPLASTIN TIME 27.8 SECONDS (25.9-37.0)
[2021-05-17 09:15] LABS: D-DIMER QUANT < 270 ng/ml (<500)
[2021-05-17 09:27] VITALS: BP 189/90
== END 2021-05-17 09:31 | disposition home or self-care (01) ==
LOC: M ED 05:56
DX: R05.9 Cough, unspecified (principal); R04.2 Hemoptysis; I10 Essential (primary) hypertension; E78.5 Hyperlipidemia, unspecified; K21.9 Gastro-esophageal reflux disease without esophagitis; G93.0 Cerebral cysts; G50.0 Trigeminal neuralgia; Z79.899 Other long term (current) drug therapy; Z88.0 Allergy status to penicillin; Z88.1 Allergy status to other antibiotic agents; Z88.2 Allergy status to sulfonamides; Z88.8 Allergy status to other drugs, medicaments and biological substances; Z91.040 Latex allergy status

== ENCOUNTER → 2021-06-22 | Outpatient (REF) | payer BC ==
[~2021-06-22] MED LIST changes: +OLOP1SPR NARES
== END ==
LOC: M LAB REF 02:30
PROVIDERS: ATTEND Family Medicine
DX: R09.3 Abnormal sputum (principal)

== ENCOUNTER → 2021-06-24 | Outpatient (REF) | payer BC | LOC: M LAB REF 12:55 | PROVIDERS: ATTEND Nurse Practitioner Family | DX: E22.2 Syndrome of inappropriate secretion of antidiuretic hormone (principal) ==

== ENCOUNTER → 2021-08-15 | Outpatient (CLI) | payer BC ==
[2021-08-15 17:38] LABS: BLOOD UREA NITROGEN 15 MG/DL (7-18); CALCIUM LEVEL 9.3 MG/DL (8.8-10.2); CARBON DIOXIDE LEVEL 31 MEQ/L (21-32); CHLORIDE LEVEL 107 MEQ/L (98-107); CREATININE FOR GFR 0.72 MG/DL (0.55-1.30); GLOMERULAR FILTRATION RATE > 60.0 (>45); GLUCOSE, FASTING 90 MG/DL (70-100); POTASSIUM SERUM 4.8 MEQ/L (3.5-5.1); SODIUM LEVEL 141 MEQ/L (136-145)
== END ==
LOC: M PLALAB 14:27
PROVIDERS: ATTEND Nurse Practitioner Adult Health
DX: F33.0 Major depressive disorder, recurrent, mild (principal)

== ENCOUNTER → 2021-09-30 | Outpatient (CLI) | payer BC ==
[2021-09-30 13:41] LABS: BASO % 0.7 % (0.0-1.0); EOS # 0.1 10^3/uL (0.0-0.5); EOS % 0.8 % (0.0-3.0); HEMATOCRIT 46.1 % (36.0-47.0); HEMOGLOBIN 15.1 g/dl (12.0-15.5); LYMPH # 1.3 10^3/uL (1.5-5.0); LYMPH % 21.9 % (24.0-44.0); MEAN CORPUSCULAR HEMOGLOBIN 32.9 pg (27.0-33.0); MEAN CORPUSCULAR HGB CONC 32.8 g/dl (32.0-36.5); MEAN CORPUSCULAR VOLUME 100.4 fl (80.0-96.0); MONO # 0.4 10^3/uL (0.0-0.8); MONO % 6.7 % (2.0-8.0); NEUTROPHILS # 4.2 10^3/uL (1.5-8.5); NEUTROPHILS % 69.7 % (36.0-66.0); PLATELET COUNT, AUTOMATED 187 10^3/uL (150-450); RED BLOOD COUNT 4.59 10^6/uL (4.00-5.40)
[2021-09-30 14:14] LABS: ERYTHROCYTE SEDIMENTATION RATE 3 mm/hr (0-30)
[2021-09-30 14:19] LABS: ALBUMIN 4.4 GM/DL (3.2-5.2); ALT/SGPT 28 U/L (12-78); BILIRUBIN,TOTAL 0.3 MG/DL (0.2-1.0); BLOOD UREA NITROGEN 16 MG/DL (7-18); CALCIUM LEVEL 10.1 MG/DL (8.8-10.2); CARBON DIOXIDE LEVEL 29 MEQ/L (21-32); CHLORIDE LEVEL 105 MEQ/L (98-107); CREATININE FOR GFR 0.74 MG/DL (0.55-1.30); FERRITIN 44 NG/ML (8-252); GLOMERULAR FILTRATION RATE > 60.0 (>45); GLUCOSE, FASTING 97 MG/DL (70-100); IRON (FE) 127 UG/DL (50-170); MAGNESIUM LEVEL 2.5 MG/DL (1.8-2.4); PERCENT SATURATION 44.6 % (13.2-45.0); POTASSIUM SERUM 4.5 MEQ/L (3.5-5.1); RHEUMATOID FACTOR QUANT < 10.0 IU/ML (<15.0); SODIUM LEVEL 140 MEQ/L (136-145); THYROID STIMULATING HORMONE 0.887 uIU/ML (0.358-3.740); TOTAL IRON BINDING CAPACITY 285 UG/DL (250-450); TOTAL PROTEIN 7.2 GM/DL (6.4-8.2); VITAMIN B12 LEVEL > 2000 PG/ML
[2021-10-02 00:11] LABS: ANA (HEP2) Negative (.); CYCLIC CITRULLINATED PEPTIDE 3 units (0-19)
== END ==
LOC: M PLALAB 10:33
PROVIDERS: ATTEND Nurse Practitioner Adult Health
DX: R68.2 Dry mouth, unspecified (principal); K14.0 Glossitis; I10 Essential (primary) hypertension; F41.1 Generalized anxiety disorder

== ENCOUNTER → 2021-10-07 | Outpatient (CLI) | payer BC ==
[2021-10-07 14:26] LABS: ALBUMIN 4.2 GM/DL (3.2-5.2); ALT/SGPT 31 U/L (12-78); BILIRUBIN,DIRECT 0.1 MG/DL (0.0-0.2); BILIRUBIN,TOTAL 0.3 MG/DL (0.2-1.0); BLOOD UREA NITROGEN 13 MG/DL (7-18); CALCIUM LEVEL 9.3 MG/DL (8.8-10.2); CARBAMAZEPINE (TEGRETOL) LEVEL 5.2 UG/ML (4.0-10.0); CARBON DIOXIDE LEVEL 31 MEQ/L (21-32); CHLORIDE LEVEL 106 MEQ/L (98-107); CREATININE FOR GFR 0.73 MG/DL (0.55-1.30); GLOMERULAR FILTRATION RATE > 60.0 (>45); GLUCOSE, FASTING 93 MG/DL (70-100); POTASSIUM SERUM 4.5 MEQ/L (3.5-5.1); SODIUM LEVEL 140 MEQ/L (136-145); TOTAL PROTEIN 6.8 GM/DL (6.4-8.2)
== END ==
LOC: M PLALAB 10:43
PROVIDERS: ATTEND Psychiatry & Neurology Neurology
DX: G50.0 Trigeminal neuralgia (principal)

== ENCOUNTER → 2021-10-14 | Outpatient (CLI) | payer BC ==
[~2021-10-14] MED LIST changes: +BARIUM SULFATE 700 MG TABLET (E-Z-DISK) As Ordered ONE; +E-Z-PAQUE 96% w/w SUSP 176GM BTL As Ordered ONE; +VARIBAR NECTAR 40% w/v 240ML SUSP BTL As Ordered ONE; +VARIBAR PUDDING 40% w/v 230ML TUBE As Ordered ONE
== END ==
LOC: M RAD 10:17
PROVIDERS: ATTEND Nurse Practitioner Adult Health
DX: R47.02 Dysphasia (principal)

== ENCOUNTER → 2021-10-17 | Outpatient (CLI) | payer BC ==
[~2021-10-17] MED LIST changes: -BARIUM SULFATE 700 MG TABLET (E-Z-DISK) As Ordered ONE; -E-Z-PAQUE 96% w/w SUSP 176GM BTL As Ordered ONE; +PROHANCE 279.3MG/ML 15ML VIAL As Ordered ONE; -VARIBAR NECTAR 40% w/v 240ML SUSP BTL As Ordered ONE; -VARIBAR PUDDING 40% w/v 230ML TUBE As Ordered ONE
== END ==
LOC: M RAD 09:02
PROVIDERS: ATTEND Psychiatry & Neurology Neurology
DX: R47.02 Dysphasia (principal); G50.0 Trigeminal neuralgia
CPT/HCPCS: 70553; A9576

== ENCOUNTER 2021-11-19 12:36 | Outpatient (RCR) | payer BC ==
[~2021-11-19 12:36] MED LIST changes: -PROHANCE 279.3MG/ML 15ML VIAL As Ordered ONE
== END 2021-11-20 ==
LOC: M PT 12:36
PROVIDERS: ATTEND Psychiatry & Neurology Neurology
DX: G50.0 Trigeminal neuralgia (principal)

== ENCOUNTER 2021-12-18 12:48 | Outpatient (RCR) | payer BC | END 2021-12-21 | LOC: M ST 12:48 | PROVIDERS: ATTEND Psychiatry & Neurology Neurology | DX: G50.0 Trigeminal neuralgia (principal) | CPT/HCPCS: 92526; 97010; 97110; 97140; G0283 ==

== ENCOUNTER → 2022-01-07 | Outpatient (CLI) | payer BC ==
[2022-01-07 15:48] LABS: BASO % 0.6 % (0.0-1.0); EOS # 0.1 10^3/uL (0.0-0.5); EOS % 2.2 % (0.0-3.0); HEMATOCRIT 43.8 % (36.0-47.0); HEMOGLOBIN 14.4 g/dl (12.0-15.5); LYMPH # 1.5 10^3/uL (1.5-5.0); LYMPH % 27.4 % (24.0-44.0); MEAN CORPUSCULAR HEMOGLOBIN 33.3 pg (27.0-33.0); MEAN CORPUSCULAR HGB CONC 32.9 g/dl (32.0-36.5); MEAN CORPUSCULAR VOLUME 101.4 fl (80.0-96.0); MONO # 0.4 10^3/uL (0.0-0.8); MONO % 8.1 % (2.0-8.0); NEUTROPHILS # 3.3 10^3/uL (1.5-8.5); NEUTROPHILS % 61.5 % (36.0-66.0); PLATELET COUNT, AUTOMATED 191 10^3/uL (150-450); RED BLOOD COUNT 4.32 10^6/uL (4.00-5.40); WHITE BLOOD COUNT 5.4 10^3/uL (4.0-10.0)
[2022-01-07 16:56] LABS: ALBUMIN 4.2 GM/DL (3.2-5.2); ALT/SGPT 32 U/L (12-78); BILIRUBIN,TOTAL 0.3 MG/DL (0.2-1.0); BLOOD UREA NITROGEN 21 MG/DL (7-18); CALCIUM LEVEL 9.2 MG/DL (8.8-10.2); CARBON DIOXIDE LEVEL 29 MEQ/L (21-32); CHLORIDE LEVEL 107 MEQ/L (98-107); CREATININE FOR GFR 0.73 MG/DL (0.55-1.30); GLOMERULAR FILTRATION RATE > 60.0 (>45); GLUCOSE, FASTING 86 MG/DL (70-100); POTASSIUM SERUM 4.4 MEQ/L (3.5-5.1); SODIUM LEVEL 138 MEQ/L (136-145); TOTAL PROTEIN 7.1 GM/DL (6.4-8.2)
== END ==
LOC: M PLALAB 13:56
PROVIDERS: ATTEND Family Medicine
DX: Z01.818 Encounter for other preprocedural examination (principal)

== ENCOUNTER → 2022-01-18 | Outpatient (CLI) | payer BC | LOC: M LABSMTC 10:56 | PROVIDERS: ATTEND Otolaryngology | DX: Z20.828 Contact with and (suspected) exposure to other viral communicable diseases (principal); Z11.52 Encounter for screening for COVID-19 | CPT/HCPCS: 87635; C9803 ==

== ENCOUNTER 2022-01-20 09:00 | Outpatient (RCR) | payer BC | END 2022-01-21 | LOC: M PT 09:00 | PROVIDERS: ATTEND Psychiatry & Neurology Neurology | DX: G50.0 Trigeminal neuralgia (principal) ==

== ENCOUNTER → 2022-02-20 | Outpatient (RCR) | payer BC | LOC: M PT 02-10 09:01 | PROVIDERS: ATTEND Psychiatry & Neurology Neurology | DX: G50.0 Trigeminal neuralgia (principal) ==

== ENCOUNTER 2022-03-13 08:23 | Outpatient (RCR) | payer BC | END 2022-03-23 | LOC: M PT 08:23 | PROVIDERS: ATTEND Psychiatry & Neurology Neurology | DX: R13.10 Dysphagia, unspecified (principal) ==

== ENCOUNTER → 2022-03-27 | Outpatient (CLI) | payer BC ==
[2022-03-27 14:12] LABS: PLATELET COUNT, AUTOMATED 191 10^3/uL (150-450)
[2022-03-27 14:47] LABS: ALBUMIN 4.2 GM/DL (3.2-5.2); ALT/SGPT 30 U/L (12-78); BILIRUBIN,DIRECT 0.1 MG/DL (0.0-0.2); BILIRUBIN,TOTAL 0.3 MG/DL (0.2-1.0); BLOOD UREA NITROGEN 11 MG/DL (7-18); CALCIUM LEVEL 9.8 MG/DL (8.8-10.2); CARBON DIOXIDE LEVEL 30 MEQ/L (21-32); CHLORIDE LEVEL 103 MEQ/L (98-107); CREATININE FOR GFR 0.71 MG/DL (0.55-1.30); GLOMERULAR FILTRATION RATE > 60.0 (>45); GLUCOSE, FASTING 91 MG/DL (70-100); POTASSIUM SERUM 4.4 MEQ/L (3.5-5.1); SODIUM LEVEL 138 MEQ/L (136-145); TOTAL PROTEIN 7.1 GM/DL (6.4-8.2)
== END ==
LOC: M PLALAB 11:06
DX: G50.0 Trigeminal neuralgia (principal)

== ENCOUNTER → 2022-07-11 | Outpatient (CLI) | payer BC ==
[~2022-07-11] MED LIST changes: +NYST-38 PO; +NYST-38 SS; -NYST50SS PO; -NYST50SS SS
== END ==
LOC: M RAD 08:22
PROVIDERS: ATTEND Specialist
DX: G37.9 Demyelinating disease of central nervous system, unspecified (principal); M50.00 Cervical disc disorder with myelopathy, unspecified cervical region; I67.82 Cerebral ischemia; I63.81 Other cerebral infarction due to occlusion or stenosis of small artery; G31.9 Degenerative disease of nervous system, unspecified; R90.82 White matter disease, unspecified

== ENCOUNTER → 2022-09-09 | Outpatient (CLI) | payer BC ==
[2022-09-09 08:32] LABS: PLATELET COUNT, AUTOMATED 202 10^3/uL (150-450)
[2022-09-09 08:54] LABS: ALBUMIN 4.1 G/DL (3.2-5.2); ALKALINE PHOSPHATASE 113 U/L (46-116); ALT/SGPT 22 U/L (7.0-40); AST/SGOT 18 U/L (<34); BILIRUBIN,DIRECT 0.2 MG/DL (<0.4); BILIRUBIN,TOTAL 0.6 MG/DL (0.3-1.2); BLOOD UREA NITROGEN 12 MG/DL (9-23); CALCIUM LEVEL 9.2 MG/DL (8.3-10.6); CARBON DIOXIDE LEVEL 30 MMOL/L (20-31); CHLORIDE LEVEL 103 MMOL/L (98-107); GLOMERULAR FILTRATION RATE > 60.0 (>45); GLUCOSE, FASTING 84 MG/DL (74-106); POTASSIUM SERUM 4.4 MMOL/L (3.5-5.1); SODIUM LEVEL 139 MMOL/L (136-145); TOTAL PROTEIN 6.6 G/DL (5.7-8.2)
== END ==
LOC: M LAB 06:59
PROVIDERS: ATTEND Psychiatry & Neurology Neurology
DX: G50.0 Trigeminal neuralgia (principal)

== ENCOUNTER → 2022-09-09 | Outpatient (CLI) | payer BC ==
[2022-09-09 08:36] LABS: BASO % 0.2 % (0.0-1.0); EOS # 0.1 10^3/uL (0.0-0.5); LYMPH # 1.3 10^3/uL (1.5-5.0); LYMPH % 15.4 % (24.0-44.0); MEAN CORPUSCULAR HEMOGLOBIN 33.3 pg (27.0-33.0); MEAN CORPUSCULAR HGB CONC 34.1 g/dl (32.0-36.5); MEAN CORPUSCULAR VOLUME 97.8 fl (80.0-96.0); MONO # 0.6 10^3/uL (0.0-0.8); MONO % 7.3 % (2.0-8.0); NEUTROPHILS # 6.3 10^3/uL (1.5-8.5); NEUTROPHILS % 75.7 % (36.0-66.0); PLATELET COUNT, AUTOMATED 208 10^3/uL (150-450); WHITE BLOOD COUNT 8.4 10^3/uL (4.0-10.0)
[2022-09-09 09:09] LABS: ALBUMIN 4.1 G/DL (3.2-5.2); ALKALINE PHOSPHATASE 120 U/L (46-116); ALT/SGPT 23 U/L (7.0-40); AST/SGOT 19 U/L (<34); BILIRUBIN,TOTAL 0.6 MG/DL (0.3-1.2); BLOOD UREA NITROGEN 12 MG/DL (9-23); CALCIUM LEVEL 9.4 MG/DL (8.3-10.6); CARBON DIOXIDE LEVEL 29 MMOL/L (20-31); CHLORIDE LEVEL 102 MMOL/L (98-107); CHOLESTEROL LEVEL 202 MG/DL (<200); CHOLESTEROL RISK RATIO 2.94 (<5); CREATININE FOR GFR 0.69 MG/DL (0.55-1.30); GLOMERULAR FILTRATION RATE > 60.0 (>45); GLUCOSE, FASTING 83 MG/DL (74-106); HDL CHOLESTEROL 68.6 MG/DL (>40); NON-HDL-C 133.4 MG/DL; POTASSIUM SERUM 4.3 MMOL/L (3.5-5.1); SODIUM LEVEL 137 MMOL/L (136-145); TOTAL PROTEIN 7.1 G/DL (5.7-8.2); TRIGLYCERIDES LEVEL 67 MG/DL (<150)
[2022-09-09 09:10] LABS: THYROID STIMULATING HORMONE 1.793 uIU/ML (0.55-4.78)
== END ==
LOC: M LAB 06:57
PROVIDERS: ATTEND Nurse Practitioner Adult Health
DX: Z13.29 Encounter for screening for other suspected endocrine disorder (principal); Z13.220 Encounter for screening for lipoid disorders; I10 Essential (primary) hypertension

== ENCOUNTER → 2022-10-22 | Outpatient (CLI) | payer BC ==
[~2022-10-22] MED LIST changes: +PROHANCE 279.3MG/ML 15ML VIAL As Ordered ONE
== END ==
LOC: M RAD 12:50
PROVIDERS: ATTEND Psychiatry & Neurology Neurology
DX: G50.0 Trigeminal neuralgia (principal)
CPT/HCPCS: 70553; A9576

== ENCOUNTER 2022-11-17 12:56 | Outpatient (RCR) | payer BC ==
[~2022-11-17 12:56] MED LIST changes: -PROHANCE 279.3MG/ML 15ML VIAL As Ordered ONE
== END 2022-11-20 ==
LOC: M PT 12:56
PROVIDERS: ATTEND Family Medicine
DX: G50.0 Trigeminal neuralgia (principal)

== ENCOUNTER 2022-11-29 05:54 | Emergency (ER) | payer BC ==
[~2022-11-29] VITALS: Ht 170.2 cm; Wt 57.6 kg
[2022-11-29] MEDS ORDERED: FAMO10TA52 PO (06:11)
[2022-11-29] MEDS ORDERED: MOME17SP NS (06:11)
[2022-11-29 08:49] LABS: BASO % 0.5 % (0.0-1.0); EOS % 0.5 % (0.0-3.0); HEMATOCRIT 45.7 % (36.0-47.0); HEMOGLOBIN 15.5 g/dl (12.0-15.5); LYMPH # 1.4 10^3/uL (1.5-5.0); LYMPH % 23.8 % (24.0-44.0); MEAN CORPUSCULAR HEMOGLOBIN 32.8 pg (27.0-33.0); MEAN CORPUSCULAR HGB CONC 33.9 g/dl (32.0-36.5); MEAN CORPUSCULAR VOLUME 96.6 fl (80.0-96.0); MONO # 0.4 10^3/uL (0.0-0.8); MONO % 6.7 % (2.0-8.0); NEUTROPHILS # 4.1 10^3/uL (1.5-8.5); NEUTROPHILS % 68.3 % (36.0-66.0); PLATELET COUNT, AUTOMATED 197 10^3/uL (150-450); RED BLOOD COUNT 4.73 10^6/uL (4.00-5.40)
[2022-11-29 08:54] VITALS: BP 195/84
[2022-11-29] MEDS ORDERED: AMLO1TAB25 (08:59)
[2022-11-29] MEDS ORDERED: ISOVUE-370 76% 100ML VIAL As Ordered ONE (09:05)
[2022-11-29 09:22] LABS: RSV AMPLIFICATION NEGATIVE (NEGATIVE)
[2022-11-29 09:22] LABS: LIPASE 45 U/L (12-53)
[2022-11-29 09:23] LABS: CPK CREATINE PHOSPHOKINASE 62 U/L (34-145)
[2022-11-29 09:24] LABS: ALBUMIN 4.4 G/DL (3.2-5.2); ALKALINE PHOSPHATASE 121 U/L (46-116); ALT/SGPT 29 U/L (7.0-40); AST/SGOT 13 U/L (<34); BILIRUBIN,DIRECT 0.1 MG/DL (<0.4); BILIRUBIN,TOTAL 0.5 MG/DL (0.3-1.2); BLOOD UREA NITROGEN 9 MG/DL (9-23); CARBON DIOXIDE LEVEL 32 MMOL/L (20-31); CHLORIDE LEVEL 101 MMOL/L (98-107); CK-MB VALUE MASS < 1.0 NG/ML (<3.6); CREATININE FOR GFR 0.56 MG/DL (0.55-1.30); GLOMERULAR FILTRATION RATE > 60.0 (>45); GLUCOSE, FASTING 91 MG/DL (74-106); MB/CK RELATIVE INDEX 1.61 (< OR =4); POTASSIUM SERUM 3.8 MMOL/L (3.5-5.1); SODIUM LEVEL 138 MMOL/L (136-145)
[2022-11-29 09:28] LABS: FREE T4 0.94 NG/DL (0.89-1.76); THYROID STIMULATING HORMONE 0.967 uIU/ML (0.55-4.78)
[2022-11-29 10:19] LABS: CK-MB VALUE MASS < 1.0 NG/ML (<3.6)
[2022-11-29 10:23] LABS: CPK CREATINE PHOSPHOKINASE 60 U/L (34-145); MB/CK RELATIVE INDEX 1.66 (< OR =4)
[2022-11-29] MEDS ORDERED: PROTPAK PO (11:25)
[2022-11-29 11:35] VITALS: BP 177/86; TEMP 97.8; O2SAT 97
== END 2022-11-29 11:39 | disposition home or self-care (01) ==
LOC: M ED 05:54
DX: R07.9 Chest pain, unspecified (principal); K86.89 Other specified diseases of pancreas; I10 Essential (primary) hypertension; F41.9 Anxiety disorder, unspecified; F32.A Depression, unspecified; Z88.0 Allergy status to penicillin; Z88.2 Allergy status to sulfonamides; Z91.040 Latex allergy status; Z88.1 Allergy status to other antibiotic agents; Z79.899 Other long term (current) drug therapy
CPT/HCPCS: 36415; 71045; 71275; 74177; 80047; 80048; 80076; 82550; 82553; 83690; 83880; 84439; 84443; 84484; 85025; 87631; 93005; 93041; 94760; 99285; Q9967

== ENCOUNTER 2022-12-17 14:15 | Outpatient (RCR) | payer BC ==
[~2022-12-17 14:15] MED LIST changes: +AMLO1TAB25; +FAMO10TA52 PO; +MOME17SP NS; +PROTPAK PO
== END 2022-12-21 ==
LOC: M PT 14:15
PROVIDERS: ATTEND Family Medicine
DX: G50.0 Trigeminal neuralgia (principal)

== ENCOUNTER → 2023-03-11 | Outpatient (CLI) | payer BC ==
[2023-03-19 08:07] LABS: ALBUMIN 4.8 G/DL (3.9-4.9); ALKALINE PHOSPHATASE 131 IU/L (44-121); ALT/SGPT 19 IU/L (0-32); AST/SGOT 21 IU/L (0-40); BILIRUBIN,DIRECT < 0.10 MG/DL (0.0-0.4); BILIRUBIN,TOTAL < 0.2 MG/DL (0.0-1.2); BLOOD UREA NITROGEN 17 MG/DL (8-27); CREATININE FOR GFR 0.68 MG/DL (0.57-1.00); GLOMERULAR FILTRATION RATE > 60.0 (>59); TOTAL PROTEIN 6.7 G/DL (6.0-8.5)
== END ==
LOC: M PLALAB 10:37
PROVIDERS: ATTEND Psychiatry & Neurology Neurology
DX: G50.0 Trigeminal neuralgia (principal)

== ENCOUNTER → 2023-03-12 | Outpatient (REF) | payer BC | LOC: M PLALAB 10:14 | PROVIDERS: ATTEND Psychiatry & Neurology Neurology | DX: G50.0 Trigeminal neuralgia (principal) ==

== ENCOUNTER 2023-06-21 07:38 | Day surgery (SDC) | payer BC ==
[~2023-06-21] VITALS: Ht 170.2 cm; Wt 61.7 kg
[~2023-06-21 07:38] MED LIST changes: +AMLO1TAB25 PO; +CVS1CAP2 PO; +MIRA3350 PO; +NS 1,000 ML IV ONE; +QC F0.52 PO; +VITA100093 PO; +VITMTA PO
[2023-06-21 09:37] LABS: BLOOD UREA NITROGEN 9 MG/DL (9-23); CALCIUM LEVEL 9.6 MG/DL (8.3-10.6); CARBON DIOXIDE LEVEL 28 MMOL/L (20-31); CHLORIDE LEVEL 103 MMOL/L (98-107); CREATININE FOR GFR 0.65 MG/DL (0.55-1.30); GLOMERULAR FILTRATION RATE > 60.0 (>45); GLUCOSE, FASTING 96 MG/DL (74-106); POTASSIUM SERUM 4.3 MMOL/L (3.5-5.1); SODIUM LEVEL 137 MMOL/L (136-145)
[2023-06-21] MEDS ORDERED: propofoL 500 MG/50 ML VIAL As Ordered ONE (09:38)
[2023-06-21] MEDS ORDERED: fentaNYL 100 MCG/2 ML INJECTION As Ordered ONE (09:38)
[2023-06-21] MEDS ORDERED: LIDOCAINE 2% 100MG/5ML SDV (FOR ANES.) As Ordered ONE (09:38)
[2023-06-21 10:09] VITALS: TEMP 95.8
[2023-06-21 10:31] VITALS: BP 190/86; O2SAT 97
== END 2023-06-21 10:42 | disposition home or self-care (01) ==
LOC: M OPP 07:38
PROVIDERS: ATTEND Internal Medicine Gastroenterology
DX: Z86.010 Personal history of colon polyps (principal); D12.6 Benign neoplasm of colon, unspecified; K64.8 Other hemorrhoids; Q43.8 Other specified congenital malformations of intestine; R12 Heartburn; R13.12 Dysphagia, oropharyngeal phase; Z79.51 Long term (current) use of inhaled steroids; Z79.899 Other long term (current) drug therapy; Z88.0 Allergy status to penicillin; Z88.1 Allergy status to other antibiotic agents; Z88.2 Allergy status to sulfonamides; Z91.040 Latex allergy status
CPT/HCPCS: 36415; 43235; 45385; 80048; 88305; J3010

== ENCOUNTER → 2023-06-23 | Outpatient (RCR) | payer BC ==
[~2023-06-23] MED LIST changes: -NS 1,000 ML IV ONE
== END ==
LOC: M PT 05-26 09:05
PROVIDERS: ATTEND Physician Assistant
DX: M50.20 Other cervical disc displacement, unspecified cervical region (principal); G95.9 Disease of spinal cord, unspecified

== ENCOUNTER → 2023-07-01 | Outpatient (CLI) | payer BC | LOC: M WHC 08:49 | PROVIDERS: ATTEND Family Medicine | DX: Z13.820 Encounter for screening for osteoporosis (principal) ==

== ENCOUNTER 2023-07-13 08:24 | Outpatient (RCR) | payer BC | END 2023-07-22 | LOC: M PT 08:24 | PROVIDERS: ATTEND Physician Assistant | DX: G95.9 Disease of spinal cord, unspecified (principal); M54.2 Cervicalgia ==

== ENCOUNTER → 2023-08-04 | Outpatient (CLI) | payer BC ==
[~2023-08-04] MED LIST changes: +PROHANCE 279.3MG/ML 15ML VIAL ONE
== END ==
LOC: M PLAIMG 10:26
PROVIDERS: ATTEND Physician Assistant Medical
DX: R93.3 Abnormal findings on diagnostic imaging of other parts of digestive tract (principal); K76.0 Fatty (change of) liver, not elsewhere classified
CPT/HCPCS: 74183; A9576

== ENCOUNTER 2023-08-20 10:00 | Outpatient (RCR) | payer BC ==
[~2023-08-20 10:00] MED LIST changes: -PROHANCE 279.3MG/ML 15ML VIAL ONE
== END 2023-08-22 ==
LOC: M PT 10:00
PROVIDERS: ATTEND Physician Assistant
DX: M54.2 Cervicalgia (principal)

== ENCOUNTER 2023-09-01 01:26 | Emergency (ER) | payer BC ==
[~2023-09-01] VITALS: Ht 170.2 cm; Wt 62.5 kg
[2023-09-01 01:27] VITALS: BP 180/98; TEMP 96.8; O2SAT 100
[2023-09-01] MEDS ORDERED: DOXY-444 PO (01:50)
== END 2023-09-02 04:14 | disposition left against medical advice (07) ==
LOC: M ED 09-02 04:14
DX: Z53.21 Procedure and treatment not carried out due to patient leaving prior to being seen by health care provider (principal)

== ENCOUNTER → 2023-09-15 | Outpatient (CLI) | payer BC ==
[~2023-09-15] MED LIST changes: +DOXY-444 PO
[2023-09-15 16:14] LABS: ALBUMIN 4.1 G/DL (3.2-5.2); BILIRUBIN,DIRECT 0.1 MG/DL (<0.4); BILIRUBIN,TOTAL 0.4 MG/DL (0.3-1.2); TOTAL PROTEIN 6.4 G/DL (5.7-8.2)
== END ==
LOC: M PLALAB 13:03
PROVIDERS: ATTEND Psychiatry & Neurology Neurology
DX: G50.0 Trigeminal neuralgia (principal)

== ENCOUNTER → 2023-09-21 | Outpatient (CLI) | payer BC ==
[~2023-09-21] MED LIST changes: +CARB-115 PO; -CARB200T98 PO; +DOXY-440 PO; -DOXY-444 PO
== END ==
LOC: M RAD 12:43
PROVIDERS: ATTEND Nurse Practitioner Adult Health
DX: R51.9 Headache, unspecified (principal)

== ENCOUNTER → 2023-12-28 | Outpatient (CLI) | payer BC ==
[2023-12-28 07:08] LABS: BASO % 0.6 % (0.0-1.0); EOS # 0.1 10^3/uL (0.0-0.5); EOS % 2.2 % (0.0-3.0); HEMATOCRIT 43.7 % (36.0-47.0); HEMOGLOBIN 14.3 g/dl (12.0-15.5); LYMPH # 1.4 10^3/uL (1.5-5.0); LYMPH % 27.5 % (24.0-44.0); MEAN CORPUSCULAR HEMOGLOBIN 32.9 pg (27.0-33.0); MEAN CORPUSCULAR HGB CONC 32.7 g/dl (32.0-36.5); MEAN CORPUSCULAR VOLUME 100.7 fl (80.0-96.0); MONO # 0.3 10^3/uL (0.0-0.8); MONO % 6.1 % (2.0-8.0); NEUTROPHILS # 3.2 10^3/uL (1.5-8.5); NEUTROPHILS % 63.2 % (36.0-66.0); PLATELET COUNT, AUTOMATED 169 10^3/uL (150-450); RED BLOOD COUNT 4.34 10^6/uL (4.00-5.40); WHITE BLOOD COUNT 5.1 10^3/uL (4.0-10.0)
[2023-12-28 07:32] LABS: ALBUMIN 4.3 G/DL (3.2-5.2); ALKALINE PHOSPHATASE 113 U/L (46-116); ALT/SGPT 26 U/L (7.0-40); AST/SGOT 19 U/L (<34); BILIRUBIN,TOTAL 0.6 MG/DL (0.3-1.2); BLOOD UREA NITROGEN 12 MG/DL (9-23); CALCIUM LEVEL 9.3 MG/DL (8.3-10.6); CARBON DIOXIDE LEVEL 28 MMOL/L (20-31); CHLORIDE LEVEL 104 MMOL/L (98-107); CHOLESTEROL LEVEL 215 MG/DL (<200); CHOLESTEROL RISK RATIO 3.39 (<5); CREATININE FOR GFR 0.61 MG/DL (0.55-1.30); GLOMERULAR FILTRATION RATE > 60.0 (>45); GLUCOSE, FASTING 80 MG/DL (74-106); HDL CHOLESTEROL 63.3 MG/DL (>40); LDL CHOLESTEROL 137.1 MG/DL (<100); NON-HDL-C 151.7 MG/DL; POTASSIUM SERUM 4.1 MMOL/L (3.5-5.1); SODIUM LEVEL 136 MMOL/L (136-145); TRIGLYCERIDES LEVEL 73 MG/DL (<150)
[2023-12-28 07:35] LABS: FREE T4 1.04 NG/DL (0.89-1.76)
== END ==
LOC: M LAB 06:12
PROVIDERS: ATTEND Family Medicine
DX: I10 Essential (primary) hypertension (principal); M85.80 Other specified disorders of bone density and structure, unspecified site; Z13.220 Encounter for screening for lipoid disorders

== ENCOUNTER → 2024-02-10 | Outpatient (CLI) | payer BC ==
[~2024-02-10] MED LIST changes: +PROHANCE 279.3MG/ML 15ML VIAL As Ordered ONE
== END ==
LOC: M RAD 15:57
PROVIDERS: ATTEND Psychiatry & Neurology Neurology
DX: G50.0 Trigeminal neuralgia (principal); R29.810 Facial weakness
CPT/HCPCS: 70553; A9576

== ENCOUNTER → 2024-02-17 | Outpatient (CLI) | payer BC ==
[~2024-02-17] MED LIST changes: -PROHANCE 279.3MG/ML 15ML VIAL As Ordered ONE
[2024-02-17 14:31] LABS: BLOOD UREA NITROGEN 14 MG/DL (9-23); CALCIUM LEVEL 10.1 MG/DL (8.3-10.6); CARBON DIOXIDE LEVEL 28 MMOL/L (20-31); CHLORIDE LEVEL 103 MMOL/L (98-107); CREATININE FOR GFR 0.62 MG/DL (0.55-1.30); GLOMERULAR FILTRATION RATE > 60.0 (>45); GLUCOSE, FASTING 79 MG/DL (74-106); POTASSIUM SERUM 4.9 MMOL/L (3.5-5.1); SODIUM LEVEL 136 MMOL/L (136-145)
== END ==
LOC: M PLALAB 10:56
PROVIDERS: ATTEND Psychiatry & Neurology Neurology
DX: G50.0 Trigeminal neuralgia (principal)

== ENCOUNTER → 2024-06-30 | Outpatient (REF) | payer BC ==
[2024-06-30 19:00] LABS: ALBUMIN 4.2 G/DL (3.2-5.2); ALKALINE PHOSPHATASE 124 U/L (35-104); ALT/SGPT 26 U/L (7.0-40); AST/SGOT 22 U/L (<34); BILIRUBIN,TOTAL 0.4 MG/DL (0.3-1.2); BLOOD UREA NITROGEN 17 MG/DL (9-23); CALCIUM LEVEL 9.5 MG/DL (8.3-10.6); CARBON DIOXIDE LEVEL 22 MMOL/L (20-31); CHLORIDE LEVEL 102 MMOL/L (98-107); CHOLESTEROL LEVEL 224 MG/DL (<200); CHOLESTEROL RISK RATIO 3.29 (<5); GLOMERULAR FILTRATION RATE > 60.0 (>45); GLUCOSE, FASTING 95 MG/DL (74-106); HDL CHOLESTEROL 67.9 MG/DL (>40); LDL CHOLESTEROL 138.3 MG/DL (<100); NON-HDL-C 156.1 MG/DL; POTASSIUM SERUM 4.1 MMOL/L (3.5-5.1); SODIUM LEVEL 138 MMOL/L (136-145); TOTAL PROTEIN 7.1 G/DL (5.7-8.2); TRIGLYCERIDES LEVEL 89 MG/DL (<150)
[2024-06-30 19:02] LABS: FREE T4 1.08 NG/DL (0.89-1.76); THYROID STIMULATING HORMONE 0.959 uIU/ML (0.55-4.78)
== END ==
LOC: M LAB REF 17:46
PROVIDERS: ATTEND Nurse Practitioner Adult Health
DX: I10 Essential (primary) hypertension (principal)

== ENCOUNTER → 2024-09-28 | Outpatient (CLI) | payer BC ==
[2024-09-28 15:56] LABS: ALBUMIN 4.4 G/DL (3.2-5.2); ALKALINE PHOSPHATASE 121 U/L (35-104); ALT/SGPT 27 U/L (7.0-40); AST/SGOT 15 U/L (<34); BILIRUBIN,DIRECT < 0.1 MG/DL (<0.4); BILIRUBIN,TOTAL 0.3 MG/DL (0.3-1.2); BLOOD UREA NITROGEN 16 MG/DL (9-23); CALCIUM LEVEL 9.6 MG/DL (8.3-10.6); CARBON DIOXIDE LEVEL 33 MMOL/L (20-31); CHLORIDE LEVEL 102 MMOL/L (98-107); CREATININE FOR GFR 0.69 MG/DL (0.55-1.30); GLOMERULAR FILTRATION RATE > 90.0 (>45); GLUCOSE, FASTING 79 MG/DL (74-106); POTASSIUM SERUM 4.5 MMOL/L (3.5-5.1); SODIUM LEVEL 141 MMOL/L (136-145); TOTAL PROTEIN 7.1 G/DL (5.7-8.2)
== END ==
LOC: M PLALAB 14:18
PROVIDERS: ATTEND Psychiatry & Neurology Neurology
DX: G50.0 Trigeminal neuralgia (principal)

== ENCOUNTER → 2024-09-30 | Outpatient (CLI) | payer BC | LOC: M RAD 09:01 | PROVIDERS: ATTEND Physician Assistant | DX: R05.1 Acute cough (principal); R04.2 Hemoptysis ==

== ENCOUNTER → 2024-12-25 | Outpatient (CLI) | payer BC ==
[2024-12-25 13:01] LABS: APPEARANCE, URINE HAZY (CLEAR); BACTERIA, URINE AUTO NEGATIVE (NEGATIVE); BILIRUBIN, URINE AUTO NEGATIVE (NEGATIVE); BLOOD, URINE BLOOD NEGATIVE (NEGATIVE); GLUCOSE, URINE (UA) AUTO NEGATIVE (NEGATIVE); KETONE, URINE AUTO NEGATIVE (NEGATIVE); LEUKOCYTE ESTERASE, URINE AUTO NEGATIVE (NEGATIVE); NITRITE, URINE AUTO NEGATIVE (NEGATIVE); PROTEIN, URINE AUTO NEGATIVE (NEGATIVE); RBC, URINE AUTO 0 /HPF (0-3); SPECIFIC GRAVITY URINE AUTO 1.011 (1.002-1.035); SQUAMOUS EPITHELIAL CELL UR AU 0 /HPF (0-6); UROBILINOGEN, URINE AUTO 0.2 mg/dL (0.0-2.0); WBC, URINE AUTO 1 /HPF (0-3)
[2024-12-25 13:09] LABS: CALCIUM LEVEL 9.6 MG/DL (8.3-10.6); CARBON DIOXIDE LEVEL 30 MMOL/L (20-31); CHLORIDE LEVEL 99 MMOL/L (98-107); CREATININE FOR GFR 0.70 MG/DL (0.55-1.30); GLOMERULAR FILTRATION RATE > 90.0 (>45); PHOSPHORUS LEVEL 3.9 MG/DL (2.4-5.1); POTASSIUM SERUM 5.1 MMOL/L (3.5-5.1); SODIUM LEVEL 138 MMOL/L (136-145)
== END ==
LOC: M PLALAB 11:21
PROVIDERS: ATTEND Nurse Practitioner Family
DX: E22.2 Syndrome of inappropriate secretion of antidiuretic hormone (principal); N18.2 Chronic kidney disease, stage 2 (mild)

== ENCOUNTER → 2025-01-03 | Outpatient (CLI) | payer BC ==
[2025-01-03 14:17] LABS: RHEUMATOID FACTOR QUANT 4.0 IU/ML (<14)
[2025-01-03 14:18] LABS: C REACTIVE PROTEIN QUANTITATIV < 0.50 MG/DL (<1.0)
[2025-01-03 14:20] LABS: FREE T4 1.10 NG/DL (0.89-1.76)
== END ==
LOC: M PLALAB 09:42
PROVIDERS: ATTEND Nurse Practitioner Adult Health
DX: I73.00 Raynaud's syndrome without gangrene (principal)